=== PATIENT | female | born 1940 | race Caucasian/White ===

== ENCOUNTER → 2017-05-13 | Outpatient (CLI) | payer OTHER ==
[~2017-05-13] MED LIST: ATV5 PO; CLC100 PO; MAGN400T6 PO; PRN10125 PO; SYN50 PO
[2017-05-13 12:01] LABS: BASO % 0.6 %; BASO ABS # 0.03 K/uL (0-0.2); COMPLETE YES; EOS % 4.9 %; HEMATOCRIT 41.3 % (37-47); LYMPH % 38.9 %; LYMPH ABS # 1.97 K/uL (1.2-3.4); MEAN CELL VOLUME 90.2 fL (80-100); MEAN CORPUSCULAR HEMOGLOBIN 29.3 pg (25-34); MEAN CORPUSCULAR HGB CONC 32.4 g/dl (32-36); MEAN PLATELET VOLUME 11.9 fL (7.4-10.4); MONO % 7.7 %; NEUT % 47.9 %; PLATELET COUNT 194 K/uL (130-400); RED BLOOD COUNT 4.58 M/uL (4.2-5.4); WHITE BLOOD COUNT 5.06 K/uL (4.8-10.8)
[2017-05-13 12:27] LABS: ESTIMATED AVERAGE GLUCOSE 111 mg/dl; HA1C FLAG Normal (Normal)
[2017-05-13 12:39] LABS: ALT/SGPT 23 U/L (12-78); AST/SGOT 16 U/L (15-37); BLOOD UREA NITROGEN 21 mg/dl (7-18); BUN/CREATININE RATIO 23.7 (10-20); CALCIUM 9.2 mg/dl (8.5-10.1); CARBON DIOXIDE 31 mmol/L (21-32); CHLORIDE 107 mmol/L (98-107); CHOLESTEROL 225 mg/dl (0-200); CREATININE 0.87 mg/dl (0.60-1.20); GLUCOSE 87 mg/dl (70-99); POTASSIUM 4.1 mmol/L (3.5-5.1); SODIUM 144 mmol/L (136-145)
[2017-05-13 12:50] LABS: ALB/GLOB RATIO 1.1 (0.9-2); ALKALINE PHOSPHATASE 44 U/L (45-117); CHOLESTEROL/HDL RATIO 2.8; HDL CHOLESTEROL 81 mg/dl; LDL CHOLESTEROL CALCULATED 127 mg/dl; TRIGLYCERIDES 83 mg/dl (0-150); VERY LOW DENSITY LIPOPROT CALC 17 mg/dl
--- NOTE | 2017-05-20 10:44 | CODING QUERY MEDICAL NECESSITY ---
CQSUPPORTING DIAGNOSIS NEEDED A supporting diagnosis is required for the test/procedure performed on this patient in order for us to be reimbursed by the patient's insurance. Please provide a supporting diagnosis for the following test/procedure listed below next to the test name along with your signature. *If there is no additional diagnosis for this patient that would support the following test/procedure please document that below next to the test/procedure. Test(s)/Procedure(s) that require a supporting diagnosis: DOS 05/13/17 M GLYCATED HEMOGLOBIN TEST BLOOD COUNT TEST THYROID TEST Provider Signature: Date: Thank you Lara Naranjo Health Information Management Once completed, please kindly fax back to [phone] For questions please call [phone]
== END | disposition home or self-care (01) ==
LOC: C.LABPBG 08:08
PROVIDERS: ATTEND Internal Medicine
DX: M81.0 Age-related osteoporosis without current pathological fracture (principal); R73.9 Hyperglycemia, unspecified; I10 Essential (primary) hypertension; E07.9 Disorder of thyroid, unspecified

== ENCOUNTER → 2017-06-09 | Outpatient (CLI) | payer OTHER ==
--- NOTE | 2017-06-09 15:19 | MAMMOGRAPHY REPORT ---
BILATERAL DIGITAL SCREENING MAMMOGRAM WITH CAD: 06/09/2017 TECHNIQUE: Current study was also evaluated with a Computer Aided Detection (CAD) system. Bilateral CC and MLO views were obtained. COMPARISON: Comparison is made to exams dated: 04/30/2016 mammogram, 04/04/2015 mammogram, 02/14/2014 ma mmogram, 02/06/2013 mammogram, 12/02/2011 mammogram, and 12/01/2010 mammogram - [facility] er. BREAST COMPOSITION: There are scattered areas of fibroglandular density in both breasts. FINDINGS: No suspicious masses, calcifications, or areas of architectural distortion are noted in ei ther breast. There has been no significant interval change compared to prior exams. Scattered bilater al benign-appearing calcifications are not significantly changed. IMPRESSION: ACR BI-RADS CATEGORY 2: BENIGN There is no mammographic evidence of malignancy. A 1 year screening mammogram is recommended. The pa tient will receive written notification of the results. Approximately 10% of breast cancers are not detected with mammography. A negative mammographic report should not delay biopsy if a clinically suggestive mass is present. Catarina Bhatia M.D. /:06/09/2017 11:48:36 Horseshoer: Florecita COLUNGA(Jacob)(Dipti), [facility] letter sent: Normal 1/2 BI-RADS Code: ACR BI-RADS Category 2: Benign
== END | disposition home or self-care (01) ==
LOC: C.MAMM 11:21
PROVIDERS: ATTEND Internal Medicine
DX: Z12.31 Encounter for screening mammogram for malignant neoplasm of breast (principal)

== ENCOUNTER → 2018-06-13 | Outpatient (CLI) | payer OTHER ==
--- NOTE | 2018-06-14 06:59 | MAMMOGRAPHY REPORT ---
BILATERAL DIGITAL SCREENING MAMMOGRAM TOMOSYNTHESIS WITH CAD: 06/13/2018 CLINICAL HISTORY: Routine screening. TECHNIQUE: The study was acquired using full field digital technology and interpreted from soft copy. Breast tomosynthesis in addition to standard 2D mammography was performed. Current study was also ev aluated with a Computer Aided Detection (CAD) system. COMPARISON: Comparison is made to exams dated: 06/09/2017 mammogram, 04/30/2016 mammogram, 04/04/2015 ma mmogram, 02/14/2014 mammogram, 02/06/2013 mammogram, and 12/02/2011 mammogram - [facility]. BREAST COMPOSITION: There are scattered areas of fibroglandular density in both breasts. FINDINGS: The glandular pattern is similar to prior mammograms. There are mild vascular calcificatio ns in the breasts. A few benign-appearing round calcifications in the right breast. No suspicious ma ss, architectural distortion or cluster of microcalcifications is seen. IMPRESSION: ACR BI-RADS CATEGORY 1: NEGATIVE There is no mammographic evidence of malignancy. A 1 year screening mammogram is recommended.( [id number]) The patient will receive written notification of the results. Some breast cancers are not detected with mammography. A negative mammographic report should not shavon y biopsy if a clinically suggestive mass is present. Sugar Kuhn M.D. ay/:06/13/2018 17:07:56 Compliance Officer: RT Katlyn(Jacob)(Dipti), [facility] letter sent: Normal 1/2 BI-RADS Code: ACR BI-RADS Category 1: Negative
== END | disposition home or self-care (01) ==
LOC: C.MAMM 09:57
PROVIDERS: ATTEND Internal Medicine
DX: Z12.31 Encounter for screening mammogram for malignant neoplasm of breast (principal)

== ENCOUNTER 2021-05-21 08:18 | Observation (INO) ==
--- NOTE | 2021-05-21 08:41 | Emergency Department Note ---
Impression & Plan Facial infection, Facial swelling, Pain, dental ED Provider Note NAME: JOANN Carrera NEARHOOD AGE: 80 SEX: F : 1940 ARRIVES VIA: Walk-In INFORMANT: Patient ED PROVIDER(S): Uziel Washington DO CHIEF COMPLAINT: Left-sided facial swelling HPI: Patient is an 80-year-old female who presents to the ER for left-sided facial swelling. This started over the weekend on Wednesday or Wednesday when she noticed a little bit of pain. The swelling started to significantly increase on Wednesday. She saw her dentist who placed her on amoxicillin after obtaining x- rays. She notes she is having trouble opening her mouth now. She has swelling and redness underneath her jaw. She admits to pain which gets to a 10 out of 10. She took some Motrin now the pain has resolved. Denies any headache or change in vision. No fevers that she remembers. No chest pain shortness of migel ath nausea vomiting or diarrhea. She still is able to swallow. ROS: See above HPI for pertinent positives & negatives. A total of 10 systems reviewed and were otherwise negative. PAST MEDICAL HISTORY:See Below PAST SURGICAL HISTORY:See Below FAMILY HISTORY:See Below SOCIAL HISTORY:See Below HOME MEDICATIONS:See Below ALLERGIES:See Below VITALS:See Below PHYSICAL EXAMINATION: GENERAL: Sitting up in bed, alert, well appearing, well nourished, no distress, non-toxic EYE EXAM: normal conjunctiva. FACE: Swelling over the left mid lower mandible tracking under the mandible. Erythema over the left lateral mandible and inferiorly under the mandible with fullness. OROPHARYNX: Limited opening of the mouth. Poor dentition. Tenderness over the left mid lower mandible. NECK: supple, no nuchal rigidity, no adenopathy, non-tender LUNGS: Clear to auscultation. Normal chest wall mechanics HEART: no murmurs, S1 normal and S2 normal ABDOMEN: abdomen soft, non-tender, normo-active bowel sounds, no masses, no rebound or guarding. BACK: Back is symmetrical on inspection and there is no deformity, no midline tenderness, no CVA tenderness. SKIN: no rashes and no bruising UPPER EXTREMITIES: upper extremities are grossly normal. LOWER EXTREMITIES: No pitting edema. NEURO EXAM: Normal sensorium, cranial nerves II-XII grossly intact, normal speech, no gross weakness of arms, no gross weakness of legs. MEDICAL DECISION MAKING: Patient is an 80-year-old female who presents the ER for facial swelling. IV was established blood work obtained. Labs show no significant leukocytosis or anemia. BMP with a slightly elevated BUN. LFTs bilirubin was unremarkable. Covid was negative. CT of the face shows significant amount of swelling. Patient was given IV fluids Zofran and Decadron. Discussed with Dr. Parag Hogue and he agreed with admission and will evaluate the patient. Discussed with the hospitalist for further work-up. Triage Nursing notes reviewed. Limited review of prior medical records performed Vital Signs: reviewed and remarkable for HTN Differential diagnosis: Dental caries, dental abscess, Ludwigs angina, Vincent angina, dental fracture, facial cellulitis, parotitis, osteomyelitis, sinus infection, peritonsillar abscess. ER treatment provided: See below Diagnostics interpreted by me: ECG: none Cardiac Monitoring: An order was placed for continuous cardiac monitoring. The monitor shows a rate of 82 with sinus rhythm. Laboratory studies: As stated above and show below. Imaging studies: CT of the face as discussed above Consultation(s): Discussed with the hospitalist for further evaluation as well as Dr. Parag Hogue Procedures: none Critical Care: None Past Med/Surg History Medical History History of cystocele History of kidney stones HTN (hypertension) Hyperlipidemia PT NOT SURE Hypothyroid Osteoporosis PSVT (paroxysmal supraventricular tachycardia) "OFF BEAT" Thyroid disorder Surgical History History of cataract surgery right cataract History of colonoscopy History of tubal ligation History of vaginal hysterectomy Family History Brother Myocardial infarction Sister Ovarian cancer Other Family history of diabetes mellitus Hypertension Kidney disease Denies family history of Prostate cancer Breast cancer Colorectal cancer Social History Smoking Status: Never smoker Second Hand Exposure: No; Hx Alcohol Use: No Hx Substance Use: No Preferred Language: Montenegrin Communication Ability: Effective Visual Impairment: Partially Limited Hearing Ability: Normal Waiter/Waitress Dining Car Required: No Beliefs That Will Affect Care: None marital status: Current Living Situation: Spouse current occupational status: retired How many Children do You have: 4 Feels Safe at Home: Yes Childhood Exposure to Second-Hand Smoke: No caffeine: No during the past year weight has: increased > 10 lbs Dental Care, Regularly: Yes Physical Activity Frequency: 3-4 Times per Week Seatbelt Use: always Sunscreen Use: Yes Assistive Devices: Glasses Allergies Allergies Allergy/AdvReac Type Severity Reaction Status Date / Time No Known Drug Allergies Allergy Verified 04/03/21 09:16 Home Meds Home Medications Medication Instructions Recorded Confirmed Lactobacillus acidophilus 100 mg PO DAILY 07/12/19 05/21/21 (Acidophilus) ascorbic acid (vitamin C) 1,000 mg 1 gm PO DAILY tab 07/12/19 05/21/21 tablet calcium carbonate 600 mg calcium 600 mg PO DAILY tab 07/12/19 05/21/21 (1,500 mg) tablet cholecalciferol (vitamin D3) 25 2,000 units PO DAILY cap 07/12/19 05/21/21 mcg (1,000 unit) capsule flaxseed oil 1,000 mg capsule 1,000 mg PO DAILY 07/12/19 05/21/21 multivitamin 1 tab PO DAILY 07/12/19 05/21/21 vitamin E (dl, acetate) 400 unit 400 units PO DAILY 07/12/19 05/21/21 capsule oregano oil 510 mg PO DAILY 07/17/19 05/21/21 magnesium oxide 500 mg capsule 500 mg PO DAILY 11/18/20 05/21/21 levothyroxine 50 mcg tablet 50 mcg PO QAM 03/04/21 05/21/21 lisinopril 10 1 tab PO QAM 03/04/21 05/21/21 mg-hydrochlorothiazide 12.5 mg tablet Previous Rx's Medication Instructions Recorded lorazepam 0.5 mg tablet 0.5 mg PO DAILY PRN #30 tab 09/09/20 Results & Data (ED) Vital Signs Vital Signs - 24 hr 05/21/21 08:20 05/21/21 08:37 05/21/21 10:57 Temperature 36.9 C Temperature Source Temporal Artery Scan Pulse Rate 82 Pulse Rate [Finger] 95 H Respiratory Rate 18 18 Respiratory Effort / Characteristics Non-Labored Respiratory Depth Normal Respiratory Pattern Regular Blood Pressure 161/91 H Blood Pressure [Right Arm] 208/82 H Blood Pressure Mean 114 Blood Pressure Mean [Right Arm] 124 Pulse Oximetry 100 97 97 Oxygen Delivery Method Room Air Room Air Room Air Sepsis Recent Fever Within 48 Hours No Sepsis New/Unexplained Change in Mental Status No Sepsis Action Taken by Nursing No Action Required 05/21/21 12:00 Temperature Temperature Source Pulse Rate Pulse Rate [Finger] 86 Respiratory Rate 16 Respiratory Effort / Characteristics Non-Labored Spontaneous Respiratory Depth Normal Respiratory Pattern Regular Blood Pressure Blood Pressure [Right Arm] 170/86 H Blood Pressure Mean Blood Pressure Mean [Right Arm] 114 Pulse Oximetry 98 Oxygen Delivery Method Room Air Sepsis Recent Fever Within 48 Hours Sepsis New/Unexplained Change in Mental Status Sepsis Action Taken by Nursing Laboratory Data Result diagrams: 05/21/21 08:45 05/21/21 08:45 Lab Results 05/21/21 05/21/21 05/21/21 Range/Units 08:45 08:45 08:48 WBC 6.66 (4.8-10.8) K/uL RBC 4.41 (4.2-5.4) M/uL Hgb 13.1 (12.0-16.0) g/dL POC Hgb 13.6 (12.0-16.0) g/dl Hct 40.2 (37-47) % POC Hct 40 (37-47) % MCV 91.2 (80-100) fL MCH 29.7 (25-34) pg MCHC 32.6 (32-36) g/dL RDW Std Deviation 46.0 (36.4-46.3) fL RDW Coeff of Jaye 13.7 (11.5-14.5) % Plt Count 197 (130-400) K/uL MPV 11.7 H (7.4-10.4) fL Immature Gran % (Auto) 0.2 % Neut % (Auto) 68.2 % Lymph % (Auto) 18.5 % [place] % (Auto) 9.3 % Eos % (Auto) 3.3 % Baso % (Auto) 0.5 % Neut # (Auto) 4.55 (1.4-6.5) K/uL Lymph # (Auto) 1.23 (1.2-3.4) K/uL [place] # (Auto) 0.62 H (0.11-0.59) K/uL Eos # (Auto) 0.22 (0-0.5) K/uL Baso # (Auto) 0.03 (0-0.2) K/uL Immature Gran # (Auto) 0.01 (0.00-0.02) K/uL POC Sodium 142 (135-144) mmol/L Sodium 139 (136-145) mmol/L POC Potassium 4.4 (3.3-5.0) mmol/L Potassium 4.3 (3.5-5.1) mmol/L POC Chloride 102 (101-112) mmol/L Chloride 106 (98-107) mmol/L Carbon Dioxide 32 (21-32) mmol/L POC Total CO2 28 (24-31) mmol/L Anion Gap 1.0 L (3-11) POC Anion Gap 17.0 (16-25) mmol/L POC BUN 28 H (7-18) mg/dl BUN 28 H (7-18) mg/dl Creatinine 1.02 (0.6-1.2) mg/dl POC Creatinine 1.1 (0.6-1.3) mg/dl Est Cr Clr Drug Dosing 39.0 ml/min Est GFR ( Amer) 59.3 ml/min Est GFR (Non-Af Amer) 51.2 ml/min BUN/Creatinine Ratio 27.7 H (10-20) Glucose 116 H (70-99) mg/dl POC Glucose (other) 118 H (70-99) mg/dl Calcium 9.8 (8.5-10.1) mg/dl POC Ioniz Calcium Jennifer 1.30 (1.12-1.32) mmol/l Total Bilirubin 0.4 (0.2-1) mg/dl AST 17 (15-37) U/L ALT 24 (12-78) U/L Alkaline Phosphatase 55 (45-117) U/L Total Protein 7.9 (6.4-8.2) gm/dl Albumin 3.7 (3.4-5.0) gm/dl Globulin 4.2 H (2.5-4.0) gm/dl Albumin/Globulin Ratio 0.9 (0.9-2) COVID-19 Eval Order SARS-CoV-2 (PCR) (Negative) 05/21/21 05/21/21 Range/Units 10:44 10:44 WBC (4.8-10.8) K/uL RBC (4.2-5.4) M/uL Hgb (12.0-16.0) g/dL POC Hgb (12.0-16.0) g/dl Hct (37-47) % POC Hct (37-47) % MCV (80-100) fL MCH (25-34) pg MCHC (32-36) g/dL RDW Std Deviation (36.4-46.3) fL RDW Coeff of Jaye (11.5-14.5) % Plt Count (130-400) K/uL MPV (7.4-10.4) fL Immature Gran % (Auto) % Neut % (Auto) % Lymph % (Auto) % [place] % (Auto) % Eos % (Auto) % Baso % (Auto) % Neut # (Auto) (1.4-6.5) K/uL Lymph # (Auto) (1.2-3.4) K/uL [place] # (Auto) (0.11-0.59) K/uL Eos # (Auto) (0-0.5) K/uL Baso # (Auto) (0-0.2) K/uL Immature Gran # (Auto) (0.00-0.02) K/uL POC Sodium (135-144) mmol/L Sodium (136-145) mmol/L POC Potassium (3.3-5.0) mmol/L Potassium (3.5-5.1) mmol/L POC Chloride (101-112) mmol/L Chloride (98-107) mmol/L Carbon Dioxide (21-32) mmol/L POC Total CO2 (24-31) mmol/L Anion Gap (3-11) POC Anion Gap (16-25) mmol/L POC BUN (7-18) mg/dl BUN (7-18) mg/dl Creatinine (0.6-1.2) mg/dl POC Creatinine (0.6-1.3) mg/dl Est Cr Clr Drug Dosing ml/min Est GFR ( Amer) ml/min Est GFR (Non-Af Amer) ml/min BUN/Creatinine Ratio (10-20) Glucose (70-99) mg/dl POC Glucose (other) (70-99) mg/dl Calcium (8.5-10.1) mg/dl POC Ioniz Calcium Jennifer (1.12-1.32) mmol/l Total Bilirubin (0.2-1) mg/dl AST (15-37) U/L ALT (12-78) U/L Alkaline Phosphatase (45-117) U/L Total Protein (6.4-8.2) gm/dl Albumin (3.4-5.0) gm/dl Globulin (2.5-4.0) gm/dl Albumin/Globulin Ratio (0.9-2) COVID-19 Eval Order Covid19 at [facility] SARS-CoV-2 (PCR) NEGATIVE (Negative) Administered Medications Discontinued Medications Dexamethasone Sodium Phosphate (DexamethasonePf 10 Mg/Ml Vial) 10 mg IV NOW ONE Stop: 05/21/21 09:45 Last Admin: 05/21/21 10:03 Dose: 10 mg Documented by: [id number] Piperacillin Sod/Tazobactam Sod (Zosyn) 4.5 gm in 120 mls @ 240 mls/hr IV NOW ONE Stop: 05/21/21 10:14 Last Infusion: 05/21/21 10:41 Dose: 0 mls/hr Documented by: [id number] Admin: 05/21/21 10:03 Dose: 240 mls/hr Documented by: [id number] Sodium Chloride (Nss 1000ml) 1,000 mls @ 999 mls/hr IV .Q1H1M ONE Stop: 05/21/21 10:45 Last Infusion: 05/21/21 11:01 Dose: 0 mls/hr Documented by: [id number] Admin: 05/21/21 10:03 Dose: 999 mls/hr Documented by: [id number] Ioversol (Optiray 320 100ml) 95 ml IV ONCE ONE Stop: 05/21/21 09:27 Last Admin: 05/21/21 09:26 Dose: 95 ml Documented by: [id number] Imaging Data Radiologist's Impression: Soft Tissue Neck CT 05/21/21 08:36 CT soft tissue neck w con HISTORY: swelling left lower jaw under mandible TECHNIQUE: Multiaxial CT images of the neck were performed following the intravenous administration of 95 cc of Optiray 320. Sagittal and coronal reformations were performed at the workstation by the radiologist. COMPARISON STUDY: None. FINDINGS: There is skin thickening and subcutaneous fat stranding/edema surrou nding the body of the left hemimandible. There are mildly enlarged left submandibular lymph nodes. There is mild thickening of the platysma and soft tissue edema along the left anterior neck likely representing extension of the inflammatory change from the left submandibular location. No loculated fluid collections to suggest an abscess. A few punctate foci of gas adjacent to the left hemimandible on images 164 and 166 may be located within the oral cavity rather than a soft tissue gas. Dental artifact partially obscures the oral cavity. Mild asymmetric enhancement within the left submandibular gland in comparison to the right which is also slightly edematous. This could be reactive to the adjacent inflammatory change or represent an additional sialoadenitis. The parotid glands are symmetric. The visualized brain parenchyma and orbits are unremarkable. The pterygopalatine fossa and paratracheal fat spaces are well- maintained. There are few punctate calcifications within the palatine tonsils. Otherwise, the mucosal airways services appear intact. The thyroid gland enhances normally. Prevertebral soft tissues and the epiglottis are normal in thickness. No periapical lucencies identified within the teeth. The paranasal sinuses and mastoid air cells are clear. No suspicious lytic or blastic osseous lesions. A few punctate calcified granulomas seen within the lung apices. The major cervical vessels appear patent. A few asymmetrically enlarged left cervical lymph nodes in comparison to the right. The dominant lymph node on image 206 measures 9 mm. These are likely reactive to the left submandibular inflammatory process. IMPRESSION: 1. A left submandibular inflammatory process as described above with soft tissue edema extending into the left anterior neck. There is associated left submandibular lymphadenopathy with a few borderline-enlarged left cervical lymph nodes. No definite abscess identified. 2. There is also mild asymmetric enhancement within the left submandibular gland which is slightly edematous. This could be reactive to the submandibular inflammatory change or represent an additional sialoadenitis. 3. No periapical lucencies identified within the teeth. ACT 112: Negative or not required by law. Electronically signed by: Marcos Vo M.D. 05/21/2021 9:43 AM Discharge Plan Visit Data Chief Complaint: Allergic Reaction Stated Complaint: SWOLLEN FACE/RASH POSSIBLE FROM AMOXICILLAN ED Provider: Uziel Washington Discharge Problem: Facial infection, Facial swelling, Pain, dental Forms Stand Alone Forms: [facility] [employer] Prescriptions Prescriptions: No Action lorazepam 0.5 mg tablet 0.5 mg PO DAILY PRN (Reason: anxiety) Qty: 30 RF: 0 Lactobacillus acidophilus [Acidophilus] capsule 100 mg PO DAILY RF: 0 calcium carbonate 600 mg calcium (1,500 mg) tablet 600 mg PO DAILY RF: 0 flaxseed oil 1,000 mg capsule 1,000 mg PO DAILY RF: 0 multivitamin tablet 1 tab PO DAILY RF: 0 ascorbic acid (vitamin C) 1,000 mg tablet 1 gm PO DAILY RF: 0 vitamin E (dl, acetate) 400 unit capsule 400 units PO DAILY RF: 0 cholecalciferol (vitamin D3) 1,000 unit capsule 2,000 units PO DAILY RF: 0 oregano oil 510 mg PO DAILY RF: 0 magnesium oxide 500 mg capsule 500 mg PO DAILY RF: 0 levothyroxine 50 mcg tablet 50 mcg PO QAM RF: 0 lisinopril-hydrochlorothiazide 10-12.5 mg tablet 1 tab PO QAM RF: 0 Referrals Referrals: Oswaldo Starks MD [Primary Care Provider] -
[2021-05-21 09:00] LABS: iSTAT Creatinine 1.1 mg/dl (0.6-1.3); iSTAT Hemoglobin 13.6 g/dl (12.0-16.0); iSTAT Ionized Calcium 1.3 mmol/l (1.12-1.32); iSTAT Potassium 4.4 mmol/L (3.3-5.0)
[2021-05-21 09:22] LABS: Basophils # (auto) 0.03 K/uL (0-0.2); Basophils % (auto) 0.5 %; Eosinophils # (auto) 0.22 K/uL (0-0.5); Eosinophils % (auto) 3.3 %; Hematocrit (blood only) 40.2 % (37-47); Hemoglobin 13.1 g/dL (12.0-16.0); Immature Granulocytes # (auto) 0.01 K/uL (0.00-0.02); Immature Granulocytes % (auto) 0.2 %; Lymphocytes # (auto) 1.23 K/uL (1.2-3.4); Lymphocytes % (auto) 18.5 %; Mean Corpuscular Hemoglobin 29.7 pg (25-34); Mean Corpuscular Hgb Conc 32.6 g/dL (32-36); Mean Corpuscular Volume 91.2 fL (80-100); Mean Platelet Volume 11.7 fL (7.4-10.4); Monocytes # (auto) 0.62 K/uL (0.11-0.59); Monocytes % (auto) 9.3 %; Neutrophils # (auto) 4.55 K/uL (1.4-6.5); Neutrophils % (auto) 68.2 %; Platelet Count 197 K/uL (130-400); RDW Coefficient of Variation 13.7 % (11.5-14.5); Red Blood Count 4.41 M/uL (4.2-5.4); White Blood Count 6.66 K/uL (4.8-10.8)
[2021-05-21] MEDS ORDERED: OPTIRAY 320 100ml IV ONE (09:26)
[2021-05-21 09:40] LABS: Albumin Level 3.7 gm/dl (3.4-5.0); BUN Creatinine Ratio 27.7 (10-20); Calcium 9.8 mg/dl (8.5-10.1); Est GFR (African American) 59.3 ml/min; Est GFR (Non-African American) 51.2 ml/min; Potassium 4.3 mmol/L (3.5-5.1)
[2021-05-21 09:43] LABS: Albumin Globulin Ratio 0.9 (0.9-2); Bilirubin,Total 0.4 mg/dl (0.2-1); Globulin 4.2 gm/dl (2.5-4.0); Total Protein 7.9 gm/dl (6.4-8.2)
[2021-05-21] MEDS ORDERED: dexAMETHasone**PF** 10 MG/ML VIAL IV ONE (09:44)
[2021-05-21] MEDS ORDERED: PIPERACILL/TAZOBAC CONSULT ACTIVE PRN ×2 (09:45→16:33)
[2021-05-21] MEDS ORDERED: PIPERACILLIN/TAZOBACTAM 4.5 GM/120 ML BAG IV ONE (09:45)
[2021-05-21] MEDS ORDERED: SODIUM CHLORIDE 0.9% 1000ML 1,000 ML IV ONE (09:45)
--- NOTE | 2021-05-21 09:45 | CT Scan Report ---
CT soft tissue neck w con HISTORY: swelling left lower jaw under mandible TECHNIQUE: Multiaxial CT images of the neck were performed following the intravenous administration o f 95 cc of Optiray 320. Sagittal and coronal reformations were performed at the workstation by the ra diologist. COMPARISON STUDY: None. FINDINGS: There is skin thickening and subcutaneous fat stranding/edema surrounding the body of the l eft hemimandible. There are mildly enlarged left submandibular lymph nodes. There is mild thickening of the platysma and soft tissue edema along the left anterior neck likely representing extension of t he inflammatory change from the left submandibular location. No loculated fluid collections to sugges t an abscess. A few punctate foci of gas adjacent to the left hemimandible on images 164 and 166 may be located within the oral cavity rather than a soft tissue gas. Dental artifact partially obscures t he oral cavity. Mild asymmetric enhancement within the left submandibular gland in comparison to the right which is also slightly edematous. This could be reactive to the adjacent inflammatory change or represent an additional sialoadenitis. The parotid glands are symmetric. The visualized brain parenc hyma and orbits are unremarkable. The pterygopalatine fossa and paratracheal fat spaces are well-main tained. There are few punctate calcifications within the palatine tonsils. Otherwise, the mucosal air ways services appear intact. The thyroid gland enhances normally. Prevertebral soft tissues and the e piglottis are normal in thickness. No periapical lucencies identified within the teeth. The paranasal sinuses and mastoid air cells are clear. No suspicious lytic or blastic osseous lesions. A few punct ate calcified granulomas seen within the lung apices. The major cervical vessels appear patent. A few asymmetrically enlarged left cervical lymph nodes in comparison to the right. The dominant lymph nod e on image 206 measures 9 mm. These are likely reactive to the left submandibular inflammatory proces s. IMPRESSION: 1. A left submandibular inflammatory process as described above with soft tissue edema extending into the left anterior neck. There is associated left submandibular lymphadenopathy with a few borderline -enlarged left cervical lymph nodes. No definite abscess identified. 2. There is also mild asymmetric enhancement within the left submandibular gland which is slightly ed ematous. This could be reactive to the submandibular inflammatory change or represent an additional s ialoadenitis. 3. No periapical lucencies identified within the teeth. ACT 112: Negative or not required by law. Electronically signed by: Marcos Vo M.D. 05/21/2021 9:43 AM
--- NOTE | 2021-05-21 11:35 | Oral/Maxillofacial Consult ---
Date of Consultation May 21, 2021 History of Present Illness Reason for Consultation: left submandibular and floor of mouth swelling Oral Maxillofacial Surgery Exam in Emergency department at the request of Dr Washington Present Complaint: I have swelling left jaw x 2 days, some pain lower left molar, pain on pressure. Symptoms have been ongoing for since Sat. Her dentist placed her on antibiotics but oral antibiotics has not resolved the swelling. Oral Exam: Findings: tender gingival tissue with deep pocket formation and severe recession on the lingual of # 19. There is floor of the mouth swelling in this area. This looks to be a periodontal infection with spread to floor of mouth and submandibular area. The soft gingival tissue is red/swollen and extremely recessed--with exposure of 80% of the distal root. This is the etiology of the present infection. This is a soft tissue periodontal infection. CT scan impression: 1. A left submandibular inflammatory process as described above with soft tissue edema extending into the left anterior neck. There is associated left submandibular lymphadenopathy with a few borderline-enlarged left cervical lymph nodes. No definite abscess identified. 2. There is also mild asymmetric enhancement within the left submandibular gland which is slightly edematous. This could be reactive to the submandibular inflam matory change or represent an additional sialoadenitis. 3. No periapical lucencies identified within the teeth. Soft tissue: floor of the mouth left side swollen, submandibular and submental swelling tongue, hard/soft palate, posterior pharyngeal area all with in normal limits, no pathology or abnormal findings noted. No lesions noted that require follow up or Bx. Oral Care: Overall oral care is good Occlusion: Class I missing many teeth TMJ exam: No pop, clicking, pain, good ROM, No history of TMJ injury or dysfunction Periodontal exam: There is evidence of periodontal pathology in the form of recession especially lingual # 19 Head/Neck exam: FROM, Able to extend and flex neck w/o difficulty, Soft swelling submandibular area and mental area extending from the left floor of the mouth. Treatment Plan: Need medical clearance To OR or extraction of # 19 and possible I&D eft Floor of the mouth. Admit on medical service for IV antibiotics. I reviewed the treatment plan and consent with the patient and daughter Understanding was expressed. Time was given for questions regarding the surgery, risks and post op care. Discussed alternative to treatment--procedure as planned, Do not do surgery Risks discussed: Pain,swelling,infection, dry socket, delayed healing, nerve injury to face,lips,tongue,chin area which could be permanent (rare). TMJ, jaw stiffness, change in bite (rare), ear pain (referred). Sinus problems like fistula or infection. Need to leave a small root fragment in place to avoid injury to nerve or sinus. Relationship of teeth to nerve and risk of jaw fracture. Home care reviewed: tooth brushing, rinsing, follow up care with Dr Hogue. diet=[id number] dental. Discussed activity level, driving/work while on Rx pain Meds. Surgery to be set up today or tomorrow once cleared by medicine then admit to floor for IV antibiotics until improvement noted so we can transfer back to oral Meds Allergies Allergy/AdvReac Type Severity Reaction Status Date / Time No Known Drug Allergies Allergy Verified 04/03/21 09:16 Home Medications Medication Instructions Recorded Confirmed Type Lactobacillus acidophilus 100 mg PO DAILY 07/12/19 05/21/21 History (Acidophilus) ascorbic acid (vitamin C) 1,000 mg 1 gm PO DAILY tab 07/12/19 05/21/21 History tablet calcium carbonate 600 mg calcium 600 mg PO DAILY tab 07/12/19 05/21/21 History (1,500 mg) tablet cholecalciferol (vitamin D3) 25 2,000 units PO DAILY cap 07/12/19 05/21/21 History mcg (1,000 unit) capsule flaxseed oil 1,000 mg capsule 1,000 mg PO DAILY 07/12/19 05/21/21 History multivitamin 1 tab PO DAILY 07/12/19 05/21/21 History vitamin E (dl, acetate) 400 unit 400 units PO DAILY 07/12/19 05/21/21 History capsule oregano oil 510 mg PO DAILY 07/17/19 05/21/21 History lorazepam 0.5 mg tablet 0.5 mg PO DAILY PRN #30 tab 09/09/20 05/21/21 Rx magnesium oxide 500 mg capsule 500 mg PO DAILY 11/18/20 05/21/21 History levothyroxine 50 mcg tablet 50 mcg PO QAM 03/04/21 05/21/21 History lisinopril 10 1 tab PO QAM 03/04/21 05/21/21 History mg-hydrochlorothiazide 12.5 mg tablet Patient History Medical History History of cystocele History of kidney stones HTN (hypertension) Hyperlipidemia PT NOT SURE Hypothyroid Osteoporosis PSVT (paroxysmal supraventricular tachycardia) "OFF BEAT" Thyroid disorder Surgical History History of cataract surgery right cataract History of colonoscopy History of tubal ligation History of vaginal hysterectomy Family History Brother Myocardial infarction Sister Ovarian cancer Other Family history of diabetes mellitus Hypertension Kidney disease Denies family history of Prostate cancer Breast cancer Colorectal cancer Social History Smoking Status: Never smoker Second Hand Exposure: No; Hx Alcohol Use: No Hx Substance Use: No Preferred Language: Colombian Communication Ability: Effective Visual Impairment: Partially Limited Hearing Ability: Normal 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 Beliefs That Will Affect Care: None marital status: Current Living Situation: Spouse current occupational status: retired How many Children do You have: 4 Feels Safe at Home: Yes Childhood Exposure to Second-Hand Smoke: No caffeine: No during the past year weight has: increased > 10 lbs Dental Care, Regularly: Yes Physical Activity Frequency: 3-4 Times per Week Seatbelt Use: always Sunscreen Use: Yes Assistive Devices: Glasses Results & Data ([facility]) Vital Signs (Past 12 Hours) Vital Signs Temp Pulse Pulse Resp BP BP Pulse Ox 05/21/21 10:57 95 H 18 208/82 H 97 05/21/21 08:37 97 05/21/21 08:20 36.9 C 82 18 161/91 H 100 PG Care Time/CCT Total # of Minutes Spent Total Time Spent with Patient: Total time spent is greater than 50% in coordination of care (as documented) at patient's floor/unit and/or counseling patient: Coding Level of Care Code 52119 Office/Outpt Visit, New
--- NOTE | 2021-05-21 11:57 | Anesthesiology Consultation ---
Date of Service May 21, 2021 Assessment & Plan (1) Encounter for pre-operative examination: Chart Review Chart Review: Acceptable Risk for Surgery (covid test pending, need to assess NPO status) History Surgery Operation Date: 05/21/21 09:40 Proposed Procedures p Tooth Extraction 19 - Parag Hogue, DMD s with Drainage - Parag Hogue, DMD Height/Weight Height: 5 ft 3 in Weight: 66.6 kg Allergies Allergy/AdvReac Type Severity Reaction Status Date / Time No Known Drug Allergies Allergy Verified 04/03/21 09:16 Medications Home Medications Medication Instructions Recorded Confirmed Last Taken Lactobacillus acidophilus 100 mg PO DAILY 07/12/19 05/21/21 05/20/21 (Acidophilus) ascorbic acid (vitamin C) 1,000 mg 1 gm PO DAILY tab 07/12/19 05/21/21 05/20/21 tablet calcium carbonate 600 mg calcium 600 mg PO DAILY tab 07/12/19 05/21/21 05/20/21 (1,500 mg) tablet cholecalciferol (vitamin D3) 25 2,000 units PO DAILY cap 07/12/19 05/21/21 05/20/21 mcg (1,000 unit) capsule flaxseed oil 1,000 mg capsule 1,000 mg PO DAILY 07/12/19 05/21/21 05/20/21 multivitamin 1 tab PO DAILY 07/12/19 05/21/21 05/20/21 vitamin E (dl, acetate) 400 unit 400 units PO DAILY 07/12/19 05/21/21 05/20/21 capsule oregano oil 510 mg PO DAILY 07/17/19 05/21/21 05/20/21 lorazepam 0.5 mg tablet 0.5 mg PO DAILY PRN #30 tab 09/09/20 05/21/21 05/21/21 magnesium oxide 500 mg capsule 500 mg PO DAILY 11/18/20 05/21/21 05/20/21 levothyroxine 50 mcg tablet 50 mcg PO QAM 03/04/21 05/21/21 05/20/21 lisinopril 10 1 tab PO QAM 03/04/21 05/21/21 05/21/21 mg-hydrochlorothiazide 12.5 mg tablet Past Medical History Medical History History of cystocele History of kidney stones HTN (hypertension) Hyperlipidemia PT NOT SURE Hypothyroid Osteoporosis PSVT (paroxysmal supraventricular tachycardia) "OFF BEAT" Thyroid disorder Past Family History Family History Brother Myocardial infarction Sister Ovarian cancer Other Family history of diabetes mellitus Hypertension Kidney disease Denies family history of Prostate cancer Breast cancer Colorectal cancer Past Surgical History Surgical History History of cataract surgery right cataract History of colonoscopy History of tubal ligation History of vaginal hysterectomy Social History Smoking Status: Never smoker Hx Alcohol Use: No Hx Substance Use: No substance use type: does not use Physical Exam Vital Signs Last Vital Signs Temp 36.9 C 05/21/21 08:20 Pulse 95 H 05/21/21 10:57 Resp 18 05/21/21 10:57 BP 208/82 H 05/21/21 10:57 Pulse Ox 97 05/21/21 10:57 Testing Laboratory Results 05/21/21 08:45 05/21/21 08:45 05/21/21 08:48 POC Glucose (other) 118 H Electrocardiogram Date: 03/07/21 Findings: + NSR @ (65 PAC's)
--- NOTE | 2021-05-21 12:26 | History & Physical Report ---
Date of Service May 21, 2021 Assessment & Plan (1) Dental infection: Plan: 80yo female presenting with redness, swelling and pain in her left mandible. Has been out Amoxicilin outpatient x 2 days with no improvement. Afebrile, non- toxic in appearance. CT with left submandibular inflammatory process with soft tissue edema extending into the left anterior neck with LAD. No abscess. Patient seen by OMFS and found to have tender gingival tissue with deep pocket formation and severe recession on the lingual side of tooth #19. Plan for OR extraction with possible I&D later today. Medically, patient is hypertensive to 208/82 while in the ER. She has since t aken her PO medication as well as some Ativan and BP has improved to 170/86. She has no active cardiac disease. PACs present on EKG. Patient with longstanding history of "extra beat" stable and asymptomatic. She is able to complete 4 METS of activity without limitation. Per RSRI criteria patient is Class I risk for cardiac complication following surgery. She is medically optimized at this time and may proceed to the OR without additional testing or intervention. Will focus on blood pressure management and pain control in the post-operative setting. -Appreciate OMFS intervention. Patient to proceed to OR later today -Will place in observation to medical floor -Continue Zosyn 3.375gm IV q 8 -Tylenol PRN -Oxycodone PRN (2) Anxiety: Plan: Chronic -Continue Ativan PRN anxiety (3) HTN (hypertension): Plan: Elevated in ER possibly secondary to stress, pain, patient had not yet taken her medication -Continue Lisinopril/HCTZ -Continue to monitor (4) Hypothyroid: Plan: Chronic -Continue Synthroid Plan: F/E/N - Heplock. Electrolytes within normal limits. NPO for now. Will advance diet at recommendation of OMFS Ppx - SCDs Code - Full per discussion with patient Dispo - Observation to medical History of Present Illness Chief Complaint: left facial pain Primary Care Provider: Oswaldo Starks MD Nunu Shah is a pleasant 80yo female with history of HTN, Hypothyroidism presenting with left facial pain and swelling. She first developed swelling of the left mandibular jaw 3 days ago. Swelling and pain have been progressive. She was seen by the dentist 2 days ago and was prescribed Amoxicillin. She has been taking that medication as prescribed. Has had continued pain and swelling as well as redness of the jaw and neck which started last evening. No additional complaints. She denies fever/chills/CP/SOB/cough. No changes in voice. No throat swelling or tightness. She is unable to fully open her mouth. Blood pressure elevated in ER. She took her Lisinopril/HCTZ and Ativan while in the ER with improvement. ER Course: Dexamethasone 10mg IV, Zosyn 4.5gm, NSS Allergies Allergy/AdvReac Type Severity Reaction Status Date / Time No Known Drug Allergies Allergy Verified 04/03/21 09:16 Home Medications Medication Instructions Recorded Confirmed Type Lactobacillus acidophilus 100 mg PO DAILY 07/12/19 05/21/21 History (Acidophilus) ascorbic acid (vitamin C) 1,000 mg 1 gm PO DAILY tab 07/12/19 05/21/21 History tablet calcium carbonate 600 mg calcium 600 mg PO DAILY tab 07/12/19 05/21/21 History (1,500 mg) tablet cholecalciferol (vitamin D3) 25 2,000 units PO DAILY cap 07/12/19 05/21/21 History mcg (1,000 unit) capsule flaxseed oil 1,000 mg capsule 1,000 mg PO DAILY 07/12/19 05/21/21 History multivitamin 1 tab PO DAILY 07/12/19 05/21/21 History vitamin E (dl, acetate) 400 unit 400 units PO DAILY 07/12/19 05/21/21 History capsule oregano oil 510 mg PO DAILY 07/17/19 05/21/21 History lorazepam 0.5 mg tablet 0.5 mg PO DAILY PRN #30 tab 09/09/20 05/21/21 Rx magnesium oxide 500 mg capsule 500 mg PO DAILY 11/18/20 05/21/21 History levothyroxine 50 mcg tablet 50 mcg PO QAM 03/04/21 05/21/21 History lisinopril 10 1 tab PO QAM 03/04/21 05/21/21 History mg-hydrochlorothiazide 12.5 mg tablet Past Med/Surg History Medical History History of cystocele History of kidney stones HTN (hypertension) Hyperlipidemia PT NOT SURE Hypothyroid Osteoporosis PSVT (paroxysmal supraventricular tachycardia) "OFF BEAT" Thyroid disorder Surgical History History of cataract surgery right cataract History of colonoscopy History of tubal ligation History of vaginal hysterectomy Family History Brother Myocardial infarction Sister Ovarian cancer Other Family history of diabetes mellitus Hypertension Kidney disease Denies family history of Prostate cancer Breast cancer Colorectal cancer Social History Smoking Status: Never smoker Second Hand Exposure: No; Hx Alcohol Use: No Hx Substance Use: No Preferred Language: Kyrgyz Communication Ability: Effective Visual Impairment: Partially Limited Hearing Ability: Normal Monotype Keyboard Operator Required: No Beliefs That Will Affect Care: None marital status: Current Living Situation: Spouse current occupational status: retired How many Children do You have: 4 Feels Safe at Home: Yes Childhood Exposure to Second-Hand Smoke: No caffeine: No during the past year weight has: increased > 10 lbs Dental Care, Regularly: Yes Physical Activity Frequency: 3-4 Times per Week Seatbelt Use: always Sunscreen Use: Yes Assistive Devices: Glasses Review of Systems Review of Systems: All systems reviewed & are unremarkable except as noted in HPI & below Physical Exam Physical Exam: General: patient resting comfortably, NAD, non-toxic in appearance, AA&O x 4, anxious Skin: warm, dry, intact, slight redness to left mandibular jaw and anterior neck HEENT: NC/AT, PERRL, EOMI, anicteric sclera, conjunctiva without injection, external ear normal to inspection and nontender, nares patent, moist mucus membranes, +trismus, slight swelling of submandibular region, neck supple, trachea midline, no LAD, no thyromegaly, no JVD, swelling of left mandible, tender to palpation Heart: +S1/S2, regular with frequent ectopy, 2/6 IVONE at LSB, no rubs/gallops Lungs: equal air entry bilaterally, no rales/rhonchi/wheezes Abd: +BS, soft, NT/ND, no masses/organomegaly/ascites Ext: warm, 2+ pulses in UE/LE bilaterally, no clubbing/cyanosis or edema Neuro: nonfocal, patient AA&O x 4, speech intact, no facial droop, moving all extremities on command with equal strength 5/5 Results & Data Results & Data ([facility]) Vital Signs (Past 12 Hours) Vital Signs Temp Pulse Pulse Resp BP BP Pulse Ox 05/21/21 10:57 95 H 18 208/82 H 97 05/21/21 08:37 97 05/21/21 08:20 36.9 C 82 18 161/91 H 100 Laboratory Results Laboratory Results WBC 6.66 K/uL (4.8-10.8) 05/21/21 08:45 RBC 4.41 M/uL (4.2-5.4) 05/21/21 08:45 Hgb 13.1 g/dL (12.0-16.0) 05/21/21 08:45 POC Hgb 13.6 g/dl (12.0-16.0) 05/21/21 08:48 Hct 40.2 % (37-47) 05/21/21 08:45 POC Hct 40 % (37-47) 05/21/21 08:48 MCV 91.2 fL (80-100) 05/21/21 08:45 MCH 29.7 pg (25-34) 05/21/21 08:45 MCHC 32.6 g/dL (32-36) 05/21/21 08:45 RDW Std Deviation 46.0 fL (36.4-46.3) 05/21/21 08:45 RDW Coeff of Jaye 13.7 % (11.5-14.5) 05/21/21 08:45 Plt Count 197 K/uL (130-400) 05/21/21 08:45 MPV 11.7 fL (7.4-10.4) H 05/21/21 08:45 Immature Gran % (Auto) 0.2 % 05/21/21 08:45 Neut % (Auto) 68.2 % 05/21/21 08:45 Lymph % (Auto) 18.5 % 05/21/21 08:45 Cataño % (Auto) 9.3 % 05/21/21 08:45 Eos % (Auto) 3.3 % 05/21/21 08:45 Baso % (Auto) 0.5 % 05/21/21 08:45 Neut # (Auto) 4.55 K/uL (1.4-6.5) 05/21/21 08:45 Lymph # (Auto) 1.23 K/uL (1.2-3.4) 05/21/21 08:45 Cataño # (Auto) 0.62 K/uL (0.11-0.59) H 05/21/21 08:45 Eos # (Auto) 0.22 K/uL (0-0.5) 05/21/21 08:45 Baso # (Auto) 0.03 K/uL (0-0.2) 05/21/21 08:45 Immature Gran # (Auto) 0.01 K/uL (0.00-0.02) 05/21/21 08:45 POC Sodium 142 mmol/L (135-144) 05/21/21 08:48 Sodium 139 mmol/L (136-145) 05/21/21 08:45 POC Potassium 4.4 mmol/L (3.3-5.0) 05/21/21 08:48 Potassium 4.3 mmol/L (3.5-5.1) 05/21/21 08:45 POC Chloride 102 mmol/L (101-112) 05/21/21 08:48 Chloride 106 mmol/L (98-107) 05/21/21 08:45 Carbon Dioxide 32 mmol/L (21-32) 05/21/21 08:45 POC Total CO2 28 mmol/L (24-31) 05/21/21 08:48 Anion Gap 1.0 (3-11) L 05/21/21 08:45 POC Anion Gap 17.0 mmol/L (16-25) 05/21/21 08:48 POC BUN 28 mg/dl (7-18) H 05/21/21 08:48 BUN 28 mg/dl (7-18) H 05/21/21 08:45 Creatinine 1.02 mg/dl (0.6-1.2) 05/21/21 08:45 POC Creatinine 1.1 mg/dl (0.6-1.3) 05/21/21 08:48 Est Cr Clr Drug Dosing 39.0 ml/min 05/21/21 08:45 Est GFR ( Amer) 59.3 ml/min 05/21/21 08:45 Est GFR (Non-Af Amer) 51.2 ml/min 05/21/21 08:45 BUN/Creatinine Ratio 27.7 (10-20) H 05/21/21 08:45 Glucose 116 mg/dl (70-99) H 05/21/21 08:45 POC Glucose (other) 118 mg/dl (70-99) H 05/21/21 08:48 Calcium 9.8 mg/dl (8.5-10.1) 05/21/21 08:45 POC Ioniz Calcium Jennifer 1.30 mmol/l (1.12-1.32) 05/21/21 08:48 Total Bilirubin 0.4 mg/dl (0.2-1) 05/21/21 08:45 AST 17 U/L (15-37) 05/21/21 08:45 ALT 24 U/L (12-78) 05/21/21 08:45 Alkaline Phosphatase 55 U/L (45-117) 05/21/21 08:45 Total Protein 7.9 gm/dl (6.4-8.2) 05/21/21 08:45 Albumin 3.7 gm/dl (3.4-5.0) 05/21/21 08:45 Globulin 4.2 gm/dl (2.5-4.0) H 05/21/21 08:45 Albumin/Globulin Ratio 0.9 (0.9-2) 05/21/21 08:45 COVID-19 Eval Order Covid19 at [facility] 05/21/21 10:44 SARS-CoV-2 (PCR) NEGATIVE (Negative) 05/21/21 10:44 Impressions Soft Tissue Neck CT 05/21/21 08:36 CT soft tissue neck w con HISTORY: swelling left lower jaw under mandible TECHNIQUE: Multiaxial CT images of the neck were performed following the intravenous administration of 95 cc of Optiray 320. Sagittal and coronal reformations were performed at the workstation by the radiologist. COMPARISON STUDY: None. FINDINGS: There is skin thickening and subcutaneous fat stranding/edema surrounding the body of the left hemimandible. There are mildly enlarged left submandibular lymph nodes. There is mild thickening of the platysma and soft tissue edema along the left anterior neck likely representing extension of the inflammatory change from the left submandibular location. No loculated fluid collections to suggest an abscess. A few punctate foci of gas adjacent to the left hemimandible on images 164 and 166 may be located within the oral cavity rather than a soft tissue gas. Dental artifact partially obscures the oral cavity. Mild asymmetric enhancement within the left submandibular gland in comparison to the right which is also slightly edematous. This could be reactive to the adjacent inflammatory change or represent an additional sialoadenitis. The parotid glands are symmetric. The visualized brain parenchyma and orbits are unremarkable. The pterygopalatine fossa and paratracheal fat spaces are well- maintained. There are few punctate calcifications within the palatine tonsils. Otherwise, the mucosal airways services appear intact. The thyroid gland enhances normally. Prevertebral soft tissues and the epiglottis are normal in thickness. No periapical lucencies identified within the teeth. The paranasal sinuses and mastoid air cells are clear. No suspicious lytic or blastic osseous lesions. A few punctate calcified granulomas seen within the lung apices. The major cervical vessels appear patent. A few asymmetrically enlarged left cervical lymph nodes in comparison to the right. The dominant lymph node on image 206 measures 9 mm. These are likely reactive to the left submandibular inflammatory process. IMPRESSION: 1. A left submandibular inflammatory process as described above with soft tissue edema extending into the left anterior neck. There is associated left submandibular lymphadenopathy with a few borderline-enlarged left cervical lymph nodes. No definite abscess identified. 2. There is also mild asymmetric enhancement within the left submandibular gland which is slightly edematous. This could be reactive to the submandibular inf lammatory change or represent an additional sialoadenitis. 3. No periapical lucencies identified within the teeth. ACT 112: Negative or not required by law. Electronically signed by: Marcos Vo M.D. 05/21/2021 9:43 AM ECG Additional Comments: EKG wtih SR at 81bpm, frequent PACs, DE=323, QRS=88, DDq=083, no ischemic changes Code Status & VTE Plan VTE Prophylaxis Plan VTE Prophylaxis will be ordered: Yes PG Care Time/CCT Total # of Minutes Spent Total Time Spent with Patient: Total time spent is greater than 50% in coordination of care (as documented) at patient's floor/unit and/or counseling patient: Coding Level of Care Code INT OBSERVATION CARE 50M LVL 2 Diagnoses Anxiety F41.9 HTN (hypertension) I10 Hypertension type: essential hypertension Hypothyroid E03.9 Dental infection K04.7 (1) HTN (hypertension) Hypertension type: essential hypertension Qualified Code(s): I10 - Essential (primary) hypertension
[2021-05-21] MEDS ORDERED: LACTATED RINGER'S 1,000 ML IV SCH (13:45)
[2021-05-21] MEDS ORDERED: ONDANSETRON INJ 2 MG/ML 2 ML VIAL IV PRN ×2 (13:51→16:33)
[2021-05-21] MEDS ORDERED: ROCURONIUM BROMIDE 10 MG/ML 5 ML VIAL IV ONE (13:51)
[2021-05-21] MEDS ORDERED: PROPOFOL IV EMULSION 10 MG/ML 20 ML VIAL IV ONE (13:51)
[2021-05-21] MEDS ORDERED: LARYING-O-JET KIT (LTA) ONE (13:51)
[2021-05-21] MEDS ORDERED: fentaNYL citrate 100 MCG/2 ML VIAL ONE (13:51)
[2021-05-21] MEDS ORDERED: ePHEDrine sulfate 50 MG/ML SYR ONE (13:51)
[2021-05-21] MEDS ORDERED: GLYCOPYRROLATE 0.2 MG/ML VIAL ONE (13:51)
[2021-05-21] MEDS ORDERED: SUCCINYLCHOLINE CHLORIDE 20 MG/ML 10 ML VIAL IV ONE (13:51)
[2021-05-21] MEDS ORDERED: ATROPINE SULFATE 0.1 MG/ML 10ML SYR IV PRN (13:51)
[2021-05-21] MEDS ORDERED: LIDOCAINE 2% 2 ML VIAL/AMP(20MG/ML) INFIL ONE (13:51)
[2021-05-21] MEDS ORDERED: DEXAMETHASONE SOD INJ 4 MG/ML VIAL ONE (13:51)
[2021-05-21] MEDS ORDERED: ONDANSETRON INJ 2 MG/ML 2 ML VIAL ONE (13:51)
[2021-05-21] MEDS ORDERED: NEOSTIGMINE METHYLSULFATE 1 MG/ML 10ML VIAL ONE (13:51)
[2021-05-21] MEDS ORDERED: fentaNYL citrate 100 MCG/2 ML VIAL IV PRN (13:51)
[2021-05-21] MEDS ORDERED: CHLORHEXIDINE GLUCONATE 0.12% 480 ML ONE (14:07)
[2021-05-21] MEDS ORDERED: STERILE IRRIGATING OPTH SOLUTION (BSS) 15ML ONE (14:07)
[2021-05-21] MEDS ORDERED: BUPIVACAINE/EPINEPHRINE 0.5% 1:200,000 1.8 ML CARP ONE (14:07)
--- NOTE | 2021-05-21 15:05 | Operative Report ---
PG Post Operative Report Pre & Post Diagnosis Operation Date: 05/21/21 09:40 Pre-Op Diagnosis: Dental Infection from tooth # 19 Post-Op Diagnosis: Dental Infection as above I identified the patient and participated in the time-out.: Yes Procedure Operation Date: 05/21/21 09:40 Actual Procedures p Tooth Extraction 19(Not Applicable) - Parag Hogue DMD s I/D left floor of the mouth - Parag Hogue DMD Surgeon Parag Hogue DMD Wave Soldering Machine Operator none Estimated Blood Loss 1 Findings Consistent with Post-Op Diagnosis Specimens none Drains none Complications none Description of Procedure I&D and extraction of # 19 Actual Procedures p Incision and Drainage Submandibular Abscess; Removal of Tooth #19(Not Applicable) - Parag Hogue DMD Once cleared for surgery general anesthesia was achieved, the eyes were protected by the anesthesia dept criteria. A time out was take for patient ID, antibiotics, equipment and position verification once all agreed the procedure began. Local anesthesia using Marcaine with a vasoconstrictor ( 1.8 ml per site) given into right inferior alveolar nerve A throat pack was placed after the oral cavity was irrigated with saline. Once a surgical level of anesthesia was obtained and the local anesthesia was given time for the blocks the surgery was started. I turned my attention to the infection which was located in the floor of the mouth and submental area. The tongue was elevated and there was also swelling associated with tooth # 19 ( see CT scan report) Incision and Drainage left floor of mouth/ submental area Using a 15 blade an incision was made lateral to the alveolar ridge and medial to the duct of the submandibular gland. Once the incision was made a small amount of pus extruded from the site. A curved hemostat was carefully placed into the infected space along the medial side of the lower jaw and into the submental space. No further drainage was noted. I palpated the chin and submental area and no further drainage was expressed. The area was irrigated with at least 100 ml of NS solution. I now turned my attention to remove the # 19 tooth. Lower # 19 The full thick Muco-periosteal flap was made on the facial aspect from # 26-30. The flap was reflected to expose the the subperiosteal space the bone adjacent to # 19 The drill and rogue was used to remove bone, the tooth was sectioned with a fissure bur and removed with a 301 elevator. When I completed the procedure I inspected the sites to insure all bleeding was controlled. I removed the throat pack and suctioned the throat. A gauze pressure dressings was placed. All instrument and sponge count was correct. the patient was allowed to awake from the anesthesia. Once full awake the anesthesia tube was removed and the patient was taken to the recovery room with all vital sign stable. The patient tolerated the surgery very well. The patient will be admitted to the floor for IV antibiotics. I will see her tomorrow AM I will follow the patient in my office, oral Rx and instructions will be given upon discharge. I attest to the content of the Intraoperative Record and any orders documented therein. Any exceptions are noted below.
[2021-05-21] MEDS ORDERED: HYDROCODONE/ACETAMOPHEN 5/325MG TAB PO PRN (15:08)
[2021-05-21] MEDS ORDERED: ACETAMINOPHEN 325 MG TAB PO STA (15:10)
--- NOTE | 2021-05-21 15:19 | Progress Note ---
Date of Service May 21, 2021 Post Op infection note I extracted tooth # 19 and drained the submandibular and submental space. She tolerated the procedure well To floor for IV antibiotics I requested that the patient use heat while in the hospital I will see her tomorrow to see how she responded to treatment. Diet as tolerated tonight Results & Data ([facility]) Vital Signs (Past 12 Hours) Vital Signs Temp Pulse Pulse Pulse Resp BP BP 05/21/21 14:59 36.6 C 73 16 181/85 H 05/21/21 13:33 36.9 C 91 H 18 165/76 H 05/21/21 12:00 86 16 05/21/21 10:57 95 H 18 05/21/21 08:37 05/21/21 08:20 36.9 C 82 18 161/91 H BP Pulse Ox 05/21/21 14:59 99 05/21/21 13:33 96 05/21/21 12:00 170/86 H 98 05/21/21 10:57 208/82 H 97 05/21/21 08:37 97 05/21/21 08:20 100 PG Care Time/CCT Total # of Minutes Spent Total Time Spent with Patient: Total time spent is greater than 50% in coordination of care (as documented) at patient's floor/unit and/or counseling patient: Coding Level of Care Code None
--- NOTE | 2021-05-21 15:36 | Anesthesiology Progress Note ---
Date of Service May 21, 2021 Anesthesia Post Procedure Vital Signs Vital Signs: Temp Pulse Pulse Pulse Resp BP BP 05/21/21 15:25 96 H 18 167/77 H 05/21/21 15:15 76 20 143/66 H 05/21/21 15:05 82 19 161/83 H 05/21/21 14:59 36.6 C 73 16 181/85 H 05/21/21 13:33 36.9 C 91 H 18 165/76 H 05/21/21 12:00 86 16 05/21/21 10:57 95 H 18 05/21/21 08:37 05/21/21 08:20 36.9 C 82 18 161/91 H BP Pulse Ox 05/21/21 15:25 95 05/21/21 15:15 100 05/21/21 15:05 99 05/21/21 14:59 99 05/21/21 13:33 96 05/21/21 12:00 170/86 H 98 05/21/21 10:57 208/82 H 97 05/21/21 08:37 97 05/21/21 08:20 100 Transfer of Care Handoff Completed per policy Notes Mental Status: alert / awake / arousable and participated in evaluation Patient Amnestic to Procedure: Yes Nausea / Vomiting: adequately controlled Pain: adequately controlled Airway Patency, RR, SpO2: stable & adequate BP & HR: stable & adequate Hydration State: stable & adequate Anesthetic Complications: no major complications apparent and Pt Satisfied with anesthetic care
[2021-05-21] MEDS ORDERED: LORazepam 0.5 MG TAB PO PRN (16:33)
[2021-05-21] MEDS: PIPERACILLIN/TAZOBACTAM 3.375 GM in DEXTROSE 5% 100 ML IV SCH (17:30)
--- NOTE | 2021-05-21 17:51 | Electrocardiogram Report ---
Test Reason : Blood Pressure : / mmHG Vent. Rate : 081 BPM Atrial Rate : 081 BPM P-R Int : 174 ms QRS Dur : 088 ms QT Int : 384 ms P-R-T Axes : 052 026 044 degrees QTc Int : 446 ms Sinus rhythm with Premature atrial complexes Otherwise normal ECG When compared with ECG of 22-DEC-2010 12:46, No significant change was found Confirmed by Fred Knowles ([id number]) on 05/21/2021 5:51:09 PM Referred By: REFERRED SELF Confirmed By:Fred Knowles
[2021-05-22] MEDS: PIPERACILLIN/TAZOBACTAM 3.375 GM in DEXTROSE 5% 100 ML IV SCH ×2 (00:52→09:52)
[2021-05-22] MEDS: LEVOTHYROXINE SODIUM 50 MCG TABLET PO SCH (07:23)
[2021-05-22 08:06] LABS: Basophils # (auto) 0.01 K/uL (0-0.2); Basophils % (auto) 0.1 %; Eosinophils # (auto) 0.01 K/uL (0-0.5); Eosinophils % (auto) 0.1 %; Hematocrit (blood only) 38.4 % (37-47); Hemoglobin 12.3 g/dL (12.0-16.0); Immature Granulocytes # (auto) 0.01 K/uL (0.00-0.02); Immature Granulocytes % (auto) 0.1 %; Lymphocytes # (auto) 0.92 K/uL (1.2-3.4); Lymphocytes % (auto) 11.8 %; Mean Corpuscular Hemoglobin 28.8 pg (25-34); Mean Corpuscular Volume 89.9 fL (80-100); Mean Platelet Volume 11.3 fL (7.4-10.4); Monocytes # (auto) 0.75 K/uL (0.11-0.59); Monocytes % (auto) 9.6 %; Neutrophils % (auto) 78.3 %; Platelet Count 204 K/uL (130-400); RDW Coefficient of Variation 13.8 % (11.5-14.5); RDW Standard Deviation 45.7 fL (36.4-46.3); Red Blood Count 4.27 M/uL (4.2-5.4)
--- NOTE | 2021-05-22 08:30 | Hospitalist Progress Note ---
Date of Service May 22, 2021 Assessment & Plan (1) Dental infection: Plan: 80yo female presenting with redness, swelling and pain in her left mandible. Has been out Amoxicillin outpatient x 2 days with no improvement. Afebrile, non-toxic in appearance. CT with left submandibular inflammatory process with soft tissue edema extending into the left anterior neck with LAD. No abscess. Patient seen by OMFS and found to have tender gingival tissue with deep pocket formation and severe recession on the lingual side of tooth #19. Plan for OR extraction with possible I&D later today. Medically, patient is hypertensive to 208/82 while in the ER. She has since taken her PO medication as well as some Ativan and BP has improved to 170/86. She has no active cardiac disease. PACs present on EKG. Patient with longstanding history of "extra beat" stable and asymptomatic. She is able to complete 4 METS of 05/22 IMPROVING OMFS consulted POD # 1 s/p p Tooth Extraction 19(Not Applicable), I/D left floor of the mouth - Parag Hogue, DMD Was on Zosyn -- switched to Unasyn today and plans for transition to Augmentin tomorrow Rinse mouth, avoid straws, ice to affected area Liquid diet tolerated -- advance as tolerated Tylenol, oxycodone prn pain control (has been utilizing Tylenol today) WBC wnl, afebrile Continue to monitor response To have f/u with Dr. Hogue in office outpt (2) Anxiety: Plan: Chronic Continue Ativan PRN anxiety (3) HTN (hypertension): Plan: Elevated in ER possibly secondary to stress, pain, patient had not yet taken her medication Improved, controlled on her usual lisinopril, HCTZ now that pain controlled Continue home meds Continue to monitor (4) Hypothyroid: Plan: Chronic Continue Synthroid Plan: Continuing IV abx for today Plans for transition to PO tomorrow and discharge with f/u with Dr. Hogue outpatient Admission and Anticipated Discharge Date Admission Date: May 21, 2021 Subjective Patient evaluated this morning. Doing well. Tolerating diet and ordered mashed potatoes for dinner. Continuing on IV abx for today and transition to oral tomorrow. Has been utilizing ice faithfully. She is eager to f/u with dentist for possible extractions of other chipped/cracked teeth to prevent current issue in future. Less swelling to chin and less erythema to face. Switched to Unasyn by Dr. Hogue this morning. If continued to do well considering d/c tomorrow. No fever, chills, chest pain, shortness of breath, difficulty swallowing/clearing secretion, abdominal pain, nausea or vomiting at this time. Review of Systems Review of Systems: All systems reviewed & are unremarkable except as noted in HPI & below Physical Exam Physical Exam: General: patient resting comfortably, NAD, non-toxic in appearance, AA&O x 4 Skin: warm, dry, intact, slight redness to left mandibular jaw and anterior neck (improving) HEENT: NC/AT, PERRL, EOMI, anicteric sclera, conjunctiva without injection, external ear normal to inspection and nontender, nares patent, moist mucus membranes,NEGATIVE trismus, decreased swelling of submandibular region, neck supple, trachea midline, no LAD, no thyromegaly, no JVD, swelling of left mandible, decreased tenderness to palpation. numerous teeth with fillings, some cracks to R. Extraction of #19 with suture to floor of mouth. minimally tender to palpation. no drainage noted Heart: +S1/S2, regular with frequent ectopy, 2/6 IVONE at LSB, no rubs/gallops Lungs: equal air entry bilaterally, no rales/rhonchi/wheezes Abd: +BS, soft, NT/ND, no masses/organomegaly/ascites Ext: warm, 2+ pulses in UE/LE bilaterally, no clubbing/cyanosis or edema Neuro: nonfocal, patient AA&O x 4, speech intact, no facial droop, moving all extremities on command with equal strength 5/5 Results & Data Results & Data ([facility]) Vital Signs (Past 12 Hours) Vital Signs Temp Pulse Resp BP Pulse Ox 05/22/21 03:18 36.7 C 67 15 123/66 94 05/21/21 23:28 36.6 C 74 15 114/66 96 Laboratory Results 05/22/21 05/22/21 Range/Units 07:41 07:41 WBC 7.80 (4.8-10.8) K/uL RBC 4.27 (4.2-5.4) M/uL Hgb 12.3 (12.0-16.0) g/dL Hct 38.4 (37-47) % MCV 89.9 (80-100) fL MCH 28.8 (25-34) pg MCHC 32.0 (32-36) g/dL RDW Std Deviation 45.7 (36.4-46.3) fL RDW Coeff of Jaye 13.8 (11.5-14.5) % Plt Count 204 (130-400) K/uL MPV 11.3 H (7.4-10.4) fL Immature Gran % (Auto) 0.1 % Neut % (Auto) 78.3 % Lymph % (Auto) 11.8 % Glynn % (Auto) 9.6 % Eos % (Auto) 0.1 % Baso % (Auto) 0.1 % Neut # (Auto) 6.10 (1.4-6.5) K/uL Lymph # (Auto) 0.92 L (1.2-3.4) K/uL Glynn # (Auto) 0.75 H (0.11-0.59) K/uL Eos # (Auto) 0.01 (0-0.5) K/uL Baso # (Auto) 0.01 (0-0.2) K/uL Immature Gran # (Auto) 0.01 (0.00-0.02) K/uL Sodium 140 (136-145) mmol/L Potassium 3.9 (3.5-5.1) mmol/L Chloride 106 (98-107) mmol/L Carbon Dioxide 31 (21-32) mmol/L Anion Gap 3.0 (3-11) BUN 18 (7-18) mg/dl Creatinine 0.83 (0.6-1.2) mg/dl Est Cr Clr Drug Dosing 47.9 ml/min Est GFR ( Amer) 76.1 ml/min Est GFR (Non-Af Amer) 65.7 ml/min BUN/Creatinine Ratio 21.3 H (10-20) Glucose 102 H (70-99) mg/dl Calcium 9.3 (8.5-10.1) mg/dl PG Care Time/CCT Total # of Minutes Spent Total Time Spent with Patient: Total time spent is greater than 50% in coordination of care (as documented) at patient's floor/unit and/or counseling patient: Coding Level of Care Code 46206 Subseq Obs Care Lvl 2 Diagnoses Dental infection K04.7 Anxiety F41.9 HTN (hypertension) I10 Hypertension type: essential hypertension Hypothyroid E03.9 (1) HTN (hypertension) Hypertension type: essential hypertension Qualified Code(s): I10 - Essential (primary) hypertension
[2021-05-22 09:15] LABS: BUN Creatinine Ratio 21.3 (10-20); Calcium 9.3 mg/dl (8.5-10.1); Creatinine Clr Calc Pharmacy 47.9 ml/min; Est GFR (African American) 76.1 ml/min; Est GFR (Non-African American) 65.7 ml/min; Potassium 3.9 mmol/L (3.5-5.1)
[2021-05-22] MEDS: LISINOPRIL/HCTZ 10/12.5MG TAB PO SCH (09:51)
[2021-05-22] MEDS: ACETAMINOPHEN 325 MG TAB PO PRN ×3 (10:54→23:55)
[2021-05-22] MEDS ORDERED: AMPICILLIN/SULBACTAM CONSULT ACTIVE PRN (14:25)
[2021-05-22] MEDS: AMPICILLIN/SULBACTAM SOD 3,000 MG in 0.9 % SODIUM CHLORIDE 100 ML IV SCH ×2 (18:29→23:49)
[2021-05-23] MEDS: LEVOTHYROXINE SODIUM 50 MCG TABLET PO SCH (05:39)
[2021-05-23] MEDS: AMPICILLIN/SULBACTAM SOD 3,000 MG in 0.9 % SODIUM CHLORIDE 100 ML IV SCH (06:17)
[2021-05-23 07:29] VITALS: TEMP 98.8; O2SAT 97
[2021-05-23] MEDS: oxyCODONE HCL IR 5 MG TAB (IMMEDIATE RELEASE) PO PRN ×2 (08:57→12:53)
--- NOTE | 2021-05-23 10:10 | Surgery Progress Note ---
Date of Service May 231Post Op infection evaluation The infected area is now healing very well. Swelling is almost gone and is very soft and the tissue is healing well No drainage is noted. Infection has responded very well to the antibiotics and the I and D. I requested that the patient continue with massage, heat and wound care. At this time the area is well healed and responded well to treatment. RTC to my office in 2 weeks for follow up OK for Discharge today Suggest Amoxicillin 500 mg q 8 hrs x 10 day Vicodin 5/325 x 15 1 q 4 hrs prn pain Assessment & Plan Admission and Anticipated Discharge Date Admission Date: May 21, 2021 Results & Data ([facility]) Vital Signs (Past 12 Hours) Vital Signs Temp Pulse Resp BP Pulse Ox 05/23/21 07:25 37.1 C 73 16 110/64 97 05/22/21 22:53 37.2 C 69 16 134/61 98 PG Care Time/CCT Total # of Minutes Spent Total Time Spent with Patient: Total time spent is greater than 50% in coordination of care (as documented) at patient's floor/unit and/or counseling patient: Coding Level of Care Code 24438 Subseq Hosp Care Lvl 1
[2021-05-23 10:30] VITALS: BP 126/66; PULSE 67
[2021-05-23] MEDS: LISINOPRIL/HCTZ 10/12.5MG TAB PO SCH (10:30)
--- NOTE | 2021-05-23 11:28 | Discharge Summary ---
Date of Service May 23, 2021 Admission HPI Per Admitting Provider Nunu Shah is a pleasant 80yo female with history of HTN, Hypothyroidism presenting with left facial pain and swelling. She first developed swelling of the left mandibular jaw 3 days ago. Swelling and pain have been progressive. She was seen by the dentist 2 days ago and was prescribed Amoxicillin. She has been taking that medication as prescribed. Has had continued pain and swelling as well as redness of the jaw and neck which started last evening. No additional complaints. She denies fever/chills/CP/SOB/cough. No changes in voice. No throat swelling or tightness. She is unable to fully open her mouth. Blood pressure elevated in ER. She took her Lisinopril/HCTZ and Ativan while in the ER with improvement. ER Course: Dexamethasone 10mg IV, Zosyn 4.5gm, NSS Admission Exam Per Admitting Provider General: patient resting comfortably, NAD, non-toxic in appearance, AA&O x 4, anxious Skin: warm, dry, intact, slight redness to left mandibular jaw and anterior neck HEENT: NC/AT, PERRL, EOMI, anicteric sclera, conjunctiva without injection, external ear normal to inspection and nontender, nares patent, moist mucus membranes, +trismus, slight swelling of submandibular region, neck supple, trachea midline, no LAD, no thyromegaly, no JVD, swelling of left mandible, tender to palpation Heart: +S1/S2, regular with frequent ectopy, 2/6 IVONE at LSB, no rubs/gallops Lungs: equal air entry bilaterally, no rales/rhonchi/wheezes Abd: +BS, soft, NT/ND, no masses/organomegaly/ascites Ext: warm, 2+ pulses in UE/LE bilaterally, no clubbing/cyanosis or edema Neuro: nonfocal, patient AA&O x 4, speech intact, no facial droop, moving all extremities on command with equal strength 5/5 Principal Diagnosis Dental Infection with Abscess Discharge Exam General: patient resting comfortably, NAD, non-toxic in appearance, AA&O x 4 Skin: warm, dry, intact, slight redness to left mandibular jaw and anterior neck (improving), less induration HEENT: NC/AT, PERRL, EOMI, anicteric sclera, conjunctiva without injection, e xternal ear normal to inspection and nontender, nares patent, moist mucus membranes,NEGATIVE trismus, decreased swelling of submandibular region, neck supple, trachea midline, no LAD, no thyromegaly, no JVD, swelling of left mandible, decreased tenderness to palpation. numerous teeth with fillings, some cracks to R. Extraction of #19 with suture to floor of mouth. minimally tender to palpation. no drainage noted Heart: +S1/S2, regular with frequent ectopy, 2/6 IVONE at LSB, no rubs/gallops Lungs: equal air entry bilaterally, no rales/rhonchi/wheezes Abd: +BS, soft, NT/ND, no masses/organomegaly/ascites Ext: warm, 2+ pulses in UE/LE bilaterally, no clubbing/cyanosis or edema Neuro: nonfocal, patient AA&O x 4, speech intact, no facial droop, moving all extremities on command with equal strength 5/5 Discharge Data Allergies Allergy/AdvReac Type Severity Reaction Status Date / Time No Known Drug Allergies Allergy Verified 04/03/21 09:16 Consultations 05/21/21 11:13 ED Decision to Admit Stat Procedures Performed Operation Date: 05/21/21 09:40 Actual Procedures p Tooth Extraction 19(Not Applicable) - Parag Hogue DMD s with Drainage - Parag Hogue DMD Ordered Studies 05/21/21 08:36 CT soft tissue neck w con Stat Hospital Course (1) Dental infection: 80yo female presenting with redness, swelling and pain in her left mandible. Has been out Amoxicillin outpatient x 2 days with no improvement. Afebrile, non-toxic in appearance. CT with left submandibular inflammatory process with soft tissue edema extending into the left anterior neck with LAD. No abscess. Patient seen by OMFS and found to have tender gingival tissue with deep pocket formation and severe recession on the lingual side of tooth #19. Plan for OR extraction with possible I&D later today. Medically, patient is hypertensive to 208/82 while in the ER. She has since taken her PO medication as well as some Ativan and BP has improved to 170/86. She has no active cardiac disease. PACs present on EKG. Patient with longst anding history of "extra beat" stable and asymptomatic. She is able to complete 4 METS of OMFS consulted s/p p Tooth Extraction 19, I/D left floor of the mouth with Parag Hogue, DMD Was on Zosyn -- switched to Unasyn and discharged on Amoxicillin and pain control Continue risk with antiseptic Heat Soft diet, no straws WBC wnl, afebrile Follow up with Dr. Hogue in office outpatient Of note, plans on f/u with dentist for discussion about plate in future given numerous fillings/cracked teeth to prevent issues in future (2) Anxiety: Chronic Continue Ativan PRN anxiety (3) HTN (hypertension): Elevated in ER possibly secondary to stress, pain, patient had not yet taken her medication Improved with pain control Continued on her home meds (4) Hypothyroid: Chronic Continued Synthroid Discharged home on Amoxicillin and pain control F/u with Dr. Hogue in office outpatient Total Time Total Time Spent Total Time Spent (In Minutes): 35 Discharge Plan Discharge Items Patient Disposition: Home - Self-Care Reason For Visit: DENTAL INFECTION Discharge Diagnosis: s/p oral/facial left side infction Condition on Discharge: Good Activity: Resume your previous activity Lifting: Gradually increase as tolerated Bathing: No limitations Exercise/Sports: Gradually increase as tolerated Weightbearing: Full weightbearing Weightbearing Comment: as tolerated Non-emergency contact: Primary Care Provider and Surgeon Call non-emergency contact if: your symptoms worsen, your pain is worsening, your temperature is above 101.5, your wound has increased redness, your wound has increased drainage and your wound pain has increased Follow-up/Referrals: Oswaldo Starks MD [Primary Care Provider] - 05/26/21 9:30 am Parag Hogue DMD [Physician] - 06/06/21 10:15 am Diet: Regular Diet Texture: Easy to Chew Diet Comment: advance diet as tolerated Addtl Attending Provider Instructions: ADDITIONAL ACTIVITY RECOMMENDATIONS: * [place] teeth after every meal. It is very important to keep your mouth clean to prevent infection. * Starting tonight rinse with the Peridex as directed then 2 x a day * it is very important to keep well hydrated, this prevents fever and possible dry socket pain SPECIAL CARE INSTRUCTIONS: *It is not uncommon that between day 2-4 that your swelling will be at its worst this is very normal, do not be alarmed. * apply heat (hot water bottle or heating pad) for the next two days, as often as possible. * Tomorrow start rinsing your mouth with 1/2 teaspoon salt in 8 ounces warm water. This rinse should be used every 4-6 hours. * Some swelling is common. It should gradually decrease within 4-[address] Hogue at [phone] if any questions * You may experience some discomfort for a few days. If pain or swelling increases, Call Dr Hogue * Return to the office for a follow up check up if one was given to you. * If you do not have a follow up appointment please call the office at [phone] and set one up for 10-15 days after your surgery Addtl Youth Worker Provider Instructions: You can take Tylenol as needed for any minimum/mild pain, but oxycodone has been ordered for breakthrough pain as you noted better control with this over the hydrocodone. Please note pain medication can cause some constipation, and you may want to consider over the counter stool softener to help with this if this occurs. Please follow up with Dr. Hogue in the next week. Return to the emergency department with any fever, chills, difficulty swallowing, keeping up with oral intake, chest pain, shortness of breath, or for any other symptoms that are concerning for you. Please follow up with PCP in the next week to monitor your progress after discharge. It has been a pleasure being a part of the medical team providing for you while you have been in the hospital. Take care! Pending Studies at Discharge: No Stand-Alone Forms: My [facility], Opioid Pain Management Medications and DC Order Prescriptions: New amoxicillin 500 mg tablet 500 mg PO Q8H 7 Days Qty: 21 RF: 0 oxycodone 5 mg Tablet 5 mg PO Q4H PRN (Reason: pain) Qty: 12 RF: 0 Continued lorazepam 0.5 mg tablet 0.5 mg PO DAILY PRN (Reason: anxiety) Qty: 30 RF: 0 Lactobacillus acidophilus [Acidophilus] capsule 100 mg PO DAILY RF: 0 calcium carbonate 600 mg calcium (1,500 mg) tablet 600 mg PO DAILY RF: 0 flaxseed oil 1,000 mg capsule 1,000 mg PO DAILY RF: 0 multivitamin tablet 1 tab PO DAILY RF: 0 ascorbic acid (vitamin C) 1,000 mg tablet 1 gm PO DAILY RF: 0 vitamin E (dl, acetate) 400 unit capsule 400 units PO DAILY RF: 0 cholecalciferol (vitamin D3) 1,000 unit capsule 2,000 units PO DAILY RF: 0 oregano oil 510 mg PO DAILY RF: 0 magnesium oxide 500 mg capsule 500 mg PO DAILY RF: 0 levothyroxine 50 mcg tablet 50 mcg PO QAM RF: 0 lisinopril-hydrochlorothiazide 10-12.5 mg tablet 1 tab PO QAM RF: 0 Discharge Orders: Discharge Order (Routine); Ordered 05/23/21 Ordered By: Ranjana Najera Admission Data Admit Date/Time: 05/21/21 12:08 Attending Provider: Storm Haynes Admit Provider: Christin Lund Primary Care Provider: Oswaldo Starks Other Providers: Christin Lund Other Interventions: Discharge Summary Assessment (RN) Last Done: 05/23/21 11:39 Supervising Physician Co-Signing Physician Notes Patient seen and examined at bedside by myself. My history of hospital course and physical exam did not differ from above. Discussed discharge planning with DONG Najera and patient. Will complete antibiotic treatment for tooth abscess with amoxicllin. I reviewed above note and agree with it. Coding Level of Care Code 43460 OBS Care - Discharge Diagnoses Dental infection K04.7 Anxiety F41.9 HTN (hypertension) I10 Hypertension type: essential hypertension Hypothyroid E03.9
[2021-05-23] MEDS ORDERED: AMOXICILLIN 500 MG CAP PO ONE (12:00)
== END 2021-05-23 14:12 | disposition home or self-care (01) ==
LOC: 3N 08:18 → ED 08:18 → SUATTDRO 12:08

== ENCOUNTER 2023-12-10 19:01 | Observation (INO) ==
[2023-12-10 19:28] LABS: Basophils # (auto) 0.05 K/uL (0.00-0.20); Basophils % (auto) 0.7 %; Eosinophils # (auto) 0.09 K/uL (0.00-0.50); Eosinophils % (auto) 1.3 %; Hematocrit (blood only) 40.8 % (37.0-47.0); Hemoglobin 13.1 g/dl (12.0-16.0); Immature Granulocytes # (auto) 0.02 K/uL (0.01-0.20); Immature Granulocytes % (auto) 0.3 %; Lymphocytes # (auto) 1.65 K/uL (1.20-3.40); Lymphocytes % (auto) 23.8 %; Mean Corpuscular Hemoglobin 28.7 pg (25.0-34.0); Mean Corpuscular Hgb Conc 32.1 g/dL (32.0-36.0); Mean Corpuscular Volume 89.5 fL (80.0-100.0); Mean Platelet Volume 10.7 fL (9.4-12.4); Monocytes # (auto) 0.51 K/uL (0.11-0.59); Monocytes % (auto) 7.3 %; Neutrophils # (auto) 4.62 K/uL (1.40-6.50); Neutrophils % (auto) 66.6 %; Platelet Count 219 K/uL (130-400); RDW Coefficient of Variation 13.5 % (11.5-14.5); RDW Standard Deviation 44.4 fL (36.4-46.3); Red Blood Count 4.56 M/uL (4.20-5.40); White Blood Count 6.94 K/ul (4.8-10.8)
[2023-12-10 19:46] LABS: INR 0.9 (0.9-1.1); Partial Thromboplastin Ratio 0.9; Partial Thromboplastin Time 26 Seconds (21-31)
[2023-12-10 20:21] LABS: Albumin Level 4.1 gm/dl (3.4-5.0); Bilirubin,Total 0.3 mg/dl (0.2-1.0); Calcium 10.3 mg/dl (8.6-10.3)
[2023-12-10 20:27] LABS: Albumin Globulin Ratio 1.2 (0.9-2); BUN Creatinine Ratio 25.3 (10-20); Creatinine Clr Calc Pharmacy 41.5 ml/min; Est GFR (African American) 70.4 ml/min; Est GFR (Non-African American) 60.7 ml/min; Globulin 3.3 gm/dl (2.5-4.0); Total Protein 7.4 gm/dl (6.0-8.3)
[2023-12-10] MEDS: LABETALOL HCL IV 5 MG/ML 20ML IV STA (21:42)
--- NOTE | 2023-12-10 21:43 | Emergency Department Note ---
Impression & Plan Chest pain, Hypertensive urgency, Elevated troponin ED Provider Note NAME: JOANN NARAYANHOOD AGE: 83 SEX: F : 1940 ARRIVES VIA: Walk-In INFORMANT: Patient ED PROVIDER(S): Uziel Washington DO CHIEF COMPLAINT: chest pain HPI: Patient is an 83-year-old female who presents to the ER with a past medical history of anxiety, diabetes, hypertension, hyperlipidemia and hypothyroidism who presents to the ER for chest pain which started this morning around 7 AM. It was present off and on throughout the day. Currently has no chest pain. She notes that 2 days ago she started having some left medial elbow pain with numbness in 4thand 5th digits. Denies any shortness of breath. No belly pain, nausea, vomiting, or diarrhea. No dysuria, urgency, or frequency. She notes she took all her medications today. No other exacerbating or remitting factors. ADDITIONAL HISTORY OBTAINED: Per HPI Chronic Medical/Social Conditions Affecting Care: Per HPI PAST MEDICAL HISTORY:See Below PAST SURGICAL HISTORY:See Below FAMILY HISTORY:See Below SOCIAL HISTORY:See Below HOME MEDICATIONS:See Below ALLERGIES:See Below VITALS:See Below PHYSICAL EXAMINATION: GENERAL: Sitting up in bed, alert, well appearing, well nourished, no distress, non-toxic EYE EXAM: normal conjunctiva. PERRL and EOM's grossly intact. OROPHARYNX: no exudate, no erythema, lips, buccal mucosa, and tongue normal and mucous membranes are moist NECK: supple, no nuchal rigidity, no adenopathy, non-tender LUNGS: Clear to auscultation. Normal chest wall mechanics HEART: no murmurs, S1 normal and S2 normal ABDOMEN: abdomen soft, non-tender, normo-active bowel sounds, no masses, no rebound or guarding. UPPER EXTREMITIES: upper extremities are grossly normal. LOWER EXTREMITIES: No pitting edema. Surgical NEURO EXAM: Normal sensorium, cranial nerves II-XII grossly intact, normal speech, no gross weakness of arms, no gross weakness of legs. MEDICAL DECISION MAKING: Patient is an 83-year-old female who presents ER for above-stated complaint. IV was established blood work was obtained. Labs show no significant leukocytosis or anemia. INR unremarkable. BMP with LFTs bilirubin was unremarkable. Initial troponin was negative but repeat elevated to 30. Systolic pressures were initially 230. She was given IV labetalol. This was followed by hydralazine. Systolic pressures trended down to 170s. She was updated bedside. She had no chest pain while she was here. Chest x-ray was unremarkable. Case was discussed with the hospitalist Dr. Lisandro Lund for further evaluation management treatment. Consults/Care Managements Discussions: Per [facility] Triage Nursing notes reviewed. Limited review of prior medical records performed Vital Signs: reviewed and remarkable for HTN Differential diagnosis: Cardiac ischemia, aortic dissection, pulmonary embolism, pneumothorax, pneumonia, pericarditis, myocarditis, esophageal rupture, GERD, cholecystitis, pancreatitis, musculoskeletal, as well as other pathologies. ER treatment provided: See below Diagnostics interpreted by me include EKG and cardiac monitoring as listed below: -Cardiac Monitoring: An order was placed for continuous cardiac monitoring. The monitor shows a rate of 85 with sinus rhythm. -ECG: Sinus rhythm rate 77 Normal axis No PVCs QTc 418 -Laboratory studies:Interpreted by me as stated above in MDM and shown below. Imaging studies: Xrays: As interpreted by me: Portable AP upright 1 view of the chest shows no focal infiltrate CTs show: none Procedures:none Critical Care: I have personally spent 32 minutes of critical care time in the direct management of this patient. This includes bedside care, interpretation of diagnostic studies, and testing, discussion with consultants, patient, and family members, and other required patient management activities. This 32 minutes is in excess of all separately billable procedures. Past Med/Surg History Medical History History of cystocele History of kidney stones HTN (hypertension) Hyperlipidemia Hypothyroid Osteoporosis Pelvic relaxation PSVT (paroxysmal supraventricular tachycardia) Submandibular abscess Thyroid disorder Surgical History History of cataract surgery History of colonoscopy History of tooth extraction History of tubal ligation History of vaginal hysterectomy Family History Brother Myocardial infarction Sister Ovarian cancer Other Family history of diabetes mellitus Hypertension Kidney disease Denies family history of Prostate cancer Breast cancer Colorectal cancer Social History Smoking Status: Never smoker Second Hand Exposure: No; Do You Dip or Chew Tobacco: No; Hx Alcohol Use: No Hx Substance Use: No Preferred Language: Burkinan Communication Ability: Effective Visual Impairment: No Limitations Hearing Ability: Normal Roller Skater Required: No Beliefs That Will Affect Care: None marital status: Current Living Situation: Spouse current occupational status: retired How many Children do You have: 4 Feels Safe at Home: Yes Childhood Exposure to Second-Hand Smoke: No Diet: regular Diet Comment: regular caffeine: No during the past year weight has: remained stable Dental Care, Regularly: Yes Physical Activity Frequency: Daily Seatbelt Use: always Sunscreen Use: Yes Assistive Devices: None Allergies Allergies Allergy/AdvReac Type Severity Reaction Status Date / Time No Known Allergies Allergy Verified 12/10/23 23:34 Home Meds Home Medications Medication Instructions Recorded Confirmed ascorbic acid (vitamin C) 1,000 mg 1 gm PO DAILY 07/12/19 12/10/23 tablet multivitamin 1 tab PO DAILY 07/12/19 12/10/23 Lactobacillus acidophilus 10 10,000 mmu cells PO DAILY 12/10/23 12/10/23 billion cell capsule (Probiotic) cholecalciferol (vitamin D3) 50 50 mcg PO DAILY 12/10/23 12/10/23 mcg (2,000 unit) capsule (Vitamin D3) clobetasol 0.05 % scalp solution 1 applic topical DIRECTED PRN 12/10/23 12/10/23 SCALP IRRITATION levothyroxine 50 mcg tablet 50 mcg PO DAILYBB 12/10/23 12/10/23 lisinopril 10 1 tab PO DAILY 12/10/23 12/10/23 mg-hydrochlorothiazide 12.5 mg tablet lorazepam 0.5 mg tablet 0.5 mg PO HS PRN anxiety 12/10/23 12/10/23 Results & Data (ED) Vital Signs Vital Signs - 24 hr 12/10/23 19:04 12/10/23 21:34 12/10/23 21:37 Temperature 36.3 C L Temperature Source Temporal Artery Scan Pulse Rate 88 83 Pulse Rate [Apical] 84 Pulse Rate from SpO2 Sensor Respiratory Rate 17 16 Respiratory Effort / Characteristics Non-Labored Spontaneous Non-Labored Respiratory Depth Normal Normal Respiratory Pattern Regular Blood Pressure 237/99 H Blood Pressure [Right Arm] 216/114 H Blood Pressure Mean 145 Blood Pressure Mean [Right Arm] 148 Blood Pressure Position [Right Arm] Sitting Pulse Oximetry 97 97 Oxygen Delivery Method Room Air Room Air Sepsis Recent Fever Within 48 Hours No Sepsis New/Unexplained Change in Mental Status No Sepsis Action Taken by Nursing No Action Required 12/10/23 21:38 12/10/23 21:42 12/10/23 22:00 Temperature Temperature Source Pulse Rate 84 76 74 Pulse Rate [Apical] Pulse Rate from SpO2 Sensor 81 69 Respiratory Rate 16 22 Respiratory Effort / Characteristics Respiratory Depth Respiratory Pattern Blood Pressure 216/114 H Blood Pressure [Right Arm] Blood Pressure Mean Blood Pressure Mean [Right Arm] Blood Pressure Position [Right Arm] Pulse Oximetry 99 98 Oxygen Delivery Method Sepsis Recent Fever Within 48 Hours Sepsis New/Unexplained Change in Mental Status Sepsis Action Taken by Nursing 12/10/23 22:00 12/10/23 22:10 12/10/23 22:10 Temperature Temperature Source Pulse Rate 66 Pulse Rate [Apical] Pulse Rate from SpO2 Sensor 66 Respiratory Rate 20 Respiratory Effort / Characteristics Respiratory Depth Respiratory Pattern Blood Pressure 197/106 H 182/79 H Blood Pressure [Right Arm] Blood Pressure Mean 126 123 Blood Pressure Mean [Right Arm] Blood Pressure Position [Right Arm] Pulse Oximetry 93 Oxygen Delivery Method Sepsis Recent Fever Within 48 Hours Sepsis New/Unexplained Change in Mental Status Sepsis Action Taken by Nursing 12/10/23 22:30 12/10/23 22:43 12/10/23 22:43 Temperature Temperature Source Pulse Rate 68 69 Pulse Rate [Apical] Pulse Rate from SpO2 Sensor 71 63 Respiratory Rate 21 25 H Respiratory Effort / Characteristics Respiratory Depth Respiratory Pattern Blood Pressure 200/80 H Blood Pressure [Right Arm] Blood Pressure Mean 157 Blood Pressure Mean [Right Arm] Blood Pressure Position [Right Arm] Pulse Oximetry 97 97 Oxygen Delivery Method Sepsis Recent Fever Within 48 Hours Sepsis New/Unexplained Change in Mental Status Sepsis Action Taken by Nursing 12/10/23 23:00 12/10/23 23:01 12/10/23 23:01 Temperature Temperature Source Pulse Rate 70 74 Pulse Rate [Apical] Pulse Rate from SpO2 Sensor 69 75 Respiratory Rate 18 22 Respiratory Effort / Characteristics Respiratory Depth Respiratory Pattern Blood Pressure 205/91 H Blood Pressure [Right Arm] Blood Pressure Mean 131 Blood Pressure Mean [Right Arm] Blood Pressure Position [Right Arm] Pulse Oximetry 96 97 Oxygen Delivery Method Sepsis Recent Fever Within 48 Hours Sepsis New/Unexplained Change in Mental Status Sepsis Action Taken by Nursing 12/10/23 23:30 12/10/23 23:30 12/10/23 23:38 Temperature Temperature Source Pulse Rate 75 Pulse Rate [Apical] Pulse Rate from SpO2 Sensor 74 82 Respiratory Rate 22 Respiratory Effort / Characteristics Respiratory Depth Respiratory Pattern Blood Pressure 177/86 H Blood Pressure [Right Arm] Blood Pressure Mean 123 Blood Pressure Mean [Right Arm] Blood Pressure Position [Right Arm] Pulse Oximetry 93 95 Oxygen Delivery Method Sepsis Recent Fever Within 48 Hours Sepsis New/Unexplained Change in Mental Status Sepsis Action Taken by Nursing 12/10/23 23:38 12/11/23 00:00 12/11/23 00:00 Temperature Temperature Source Pulse Rate 79 Pulse Rate [Apical] Pulse Rate from SpO2 Sensor Respiratory Rate 16 Respiratory Effort / Characteristics Respiratory Depth Respiratory Pattern Blood Pressure 184/98 H 162/74 H Blood Pressure [Right Arm] Blood Pressure Mean 153 126 Blood Pressure Mean [Right Arm] Blood Pressure Position [Right Arm] Pulse Oximetry Oxygen Delivery Method Sepsis Recent Fever Within 48 Hours Sepsis New/Unexplained Change in Mental Status Sepsis Action Taken by Nursing Laboratory Data 12/10/23 19:18 12/10/23 19:18 Lab Results 12/10/23 12/10/23 Range/Units 19:18 23:00 WBC 6.94 (4.8-10.8) K/ul RBC 4.56 (4.20-5.40) M/uL Hgb 13.1 (12.0-16.0) g/dl Hct 40.8 (37.0-47.0) % MCV 89.5 (80.0-100.0) fL MCH 28.7 (25.0-34.0) pg MCHC 32.1 (32.0-36.0) g/dL RDW Std Deviation 44.4 (36.4-46.3) fL RDW Coeff of Jaye 13.5 (11.5-14.5) % Plt Count 219 (130-400) K/uL MPV 10.7 (9.4-12.4) fL Immature Gran % (Auto) 0.3 % Neut % (Auto) 66.6 % Lymph % (Auto) 23.8 % [place] % (Auto) 7.3 % Eos % (Auto) 1.3 % Baso % (Auto) 0.7 % Neut # (Auto) 4.62 (1.40-6.50) K/uL Lymph # (Auto) 1.65 (1.20-3.40) K/uL [place] # (Auto) 0.51 (0.11-0.59) K/uL Eos # (Auto) 0.09 (0.00-0.50) K/uL Baso # (Auto) 0.05 (0.00-0.20) K/uL Immature Gran # (Auto) 0.02 (0.01-0.20) K/uL PT 10.0 (9.0-12.0) Seconds INR 0.9 (0.9-1.1) APTT 26 (21-31) Seconds PTT Ratio 0.9 Sodium 139 (136-145) mmol/L Potassium 4.0 (3.5-5.1) mmol/L Chloride 102 (98-107) mmol/L Carbon Dioxide 28 (21-32) mmol/L Anion Gap 9 (3-11) BUN 22 (6-23) mg/dl Creatinine 0.87 (0.6-1.2) mg/dl Est Cr Clr Drug Dosing 41.5 ml/min Est GFR ( Amer) 70.4 ml/min Est GFR (Non-Af Amer) 60.7 ml/min BUN/Creatinine Ratio 25.3 H (10-20) Glucose 134 H (70-99(Fasting)) mg/dl Calcium 10.3 (8.6-10.3) mg/dl Phosphorus 3.4 (2.5-4.9) mg/dl Magnesium 1.9 (1.7-2.4) mg/dl Total Bilirubin 0.3 (0.2-1.0) mg/dl AST 20 (13-39) U/L ALT 15 (7-52) U/L Alkaline Phosphatase 50 (34-104) U/L Troponin I High Sens 11.0 29.7 H D (0-14) pg/ml Total Protein 7.4 (6.0-8.3) gm/dl Albumin 4.1 (3.4-5.0) gm/dl Globulin 3.3 (2.5-4.0) gm/dl Albumin/Globulin Ratio 1.2 (0.9-2) Administered Medications Discontinued Medications Amlodipine Besylate (Amlodipine Besylate 5 Mg Tab) 5 mg PO NOW ONE Stop: 12/10/23 23:13 Last Admin: 12/10/23 23:38 Dose: 5 mg Documented By: MICHAEL Hydralazine HCl (Hydralazine 10 Mg Tab) 10 mg PO NOW STA Stop: 12/10/23 23:13 Last Admin: 12/11/23 00:13 Dose: Not Given Documented By: MICHAEL Hydralazine HCl (Hydralazine Hcl 20 Mg/Ml Vial) 10 mg IV NOW STA Stop: 12/10/23 23:20 Last Admin: 12/10/23 23:38 Dose: 10 mg Documented By: MICHAEL Labetalol HCl (Labetalol Hcl Iv 5 Mg/Ml 20ml) 10 mg IV NOW STA Stop: 12/10/23 21:39 Last Admin: 12/10/23 21:42 Dose: 10 mg Documented By: MICHAEL Co-signed By: ANGY Discharge Plan Visit Data Chief Complaint: Cardiac Assessment Stated Complaint: PAIN IN ARM AND CHEST PAIN ED Provider: Uziel Washington Discharge Problem: Chest pain, Hypertensive urgency, Elevated troponin Forms Stand Alone Forms: My [facility] 422 Group Prescriptions Prescriptions: No Action multivitamin tablet 1 tab PO DAILY ascorbic acid (vitamin C) 1,000 mg tablet 1 gm PO DAILY cholecalciferol (vitamin D3) [Vitamin D3] 50 mcg (2,000 unit) Capsule 50 mcg PO DAILY Probiotic 10 billion cell Capsule 10,000 mmu cells PO DAILY lorazepam 0.5 mg tablet 0.5 mg PO HS PRN (Reason: anxiety) levothyroxine 50 mcg tablet 50 mcg PO DAILYBB Rx Instructions: TAKE ONE TABLET BY MOUTH EVERY MORNING lisinopril-hydrochlorothiazide 10-12.5 mg tablet 1 tab PO DAILY Rx Instructions: TAKE ONE TABLET BY MOUTH EVERY DAY clobetasol 0.05 % solution 1 applic topical DIRECTED PRN (Reason: SCALP IRRITATION) Referrals Referrals: Porsha Sargent DO [Primary Care Provider] - Discharge Problem: Chest pain Qualifiers: Chest pain type: unspecified Qualified Code(s): R07.9 - Chest pain, unspecified
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
[2023-12-10] MEDS: hydrALAZINE HCL 20 MG/ML VIAL IV STA (23:38)
[2023-12-10] MEDS: amLODIPine BESYLATE 5 MG TAB PO ONE (23:38)
[2023-12-10 23:42] LABS: Magnesium 1.9 mg/dl (1.7-2.4); Phosphorus 3.4 mg/dl (2.5-4.9)
[2023-12-11 00:02] LABS: Troponin I High Sensitivity 29.7 pg/ml (0-14)
[2023-12-11] MEDS: hydrALAZINE 10 MG TAB PO STA (00:13)
[2023-12-11] MEDS: LORazepam 0.5 MG TAB PO STA (00:50)
[2023-12-11] MEDS ORDERED: ACETAMINOPHEN 325 MG TAB PO PRN (03:08)
[2023-12-11] MEDS ORDERED: ONDANSETRON INJ 2 MG/ML 2 ML VIAL IV PRN (03:08)
[2023-12-11] MEDS ORDERED: LORazepam 0.5 MG TAB PO PRN (03:08)
[2023-12-11] MEDS: LEVOTHYROXINE SODIUM 50 MCG TABLET PO SCH (06:47)
--- NOTE | 2023-12-11 07:04 | Hospitalist Progress Note ---
Date of Service December 11, 2023 Assessment & Plan (1) Chest pain: Plan: troponin 11->29->28 ECG with no acute changes Patient denies chest pain at this time. did have markedly elevated BP -Pending echo (2) HTN (hypertension): Plan: Elevated blood pressure in the ER now improved, 150/68 -Increase home Lisinopril/HCTZ to 20/12.5mg daily to start 12/11/23 -Initiate Amlodipine 5mg po daily -Ativan PRN Patient has had a lot of stress lately - recently in October (3) Hypothyroid: Plan: Chronic stable -Continue Synthroid Admission and Anticipated Discharge Date Admission Date: December 10, 2023 Results & Data Results & Data Vital Signs (Past 12 Hours) Vital Signs Temp Pulse Pulse Resp BP BP Pulse Ox 12/11/23 06:55 73 12/11/23 03:24 83 12/11/23 03:23 92 H 18 150/68 H 95 12/11/23 03:23 12/11/23 01:30 81 19 94 12/11/23 01:30 153/89 H 12/11/23 01:10 87 12/11/23 01:00 84 13 95 12/11/23 01:00 170/78 H 12/11/23 00:30 82 18 95 12/11/23 00:30 165/76 H 12/11/23 00:00 79 16 12/11/23 00:00 162/74 H 12/10/23 23:38 184/98 H 12/10/23 23:38 95 12/10/23 23:30 75 22 93 12/10/23 23:30 177/86 H 12/10/23 23:01 74 22 97 12/10/23 23:01 205/91 H 12/10/23 23:00 70 18 96 12/10/23 22:43 200/80 H 12/10/23 22:43 69 25 H 97 12/10/23 22:30 68 21 97 12/10/23 22:10 66 20 93 12/10/23 22:10 182/79 H 12/10/23 22:00 197/106 H 12/10/23 22:00 74 22 98 12/10/23 21:42 76 216/114 H 12/10/23 21:38 84 16 99 12/10/23 21:37 83 12/10/23 21:34 84 16 216/114 H 97 12/10/23 19:04 97.3 F L 88 17 237/99 H 97 O2 Del Method 12/11/23 06:55 12/11/23 03:24 12/11/23 03:23 Room Air 12/11/23 03:23 Room Air 12/11/23 01:30 12/11/23 01:30 12/11/23 01:10 12/11/23 01:00 12/11/23 01:00 12/11/23 00:30 12/11/23 00:30 12/11/23 00:00 12/11/23 00:00 12/10/23 23:38 12/10/23 23:38 12/10/23 23:30 12/10/23 23:30 12/10/23 23:01 12/10/23 23:01 12/10/23 23:00 12/10/23 22:43 12/10/23 22:43 12/10/23 22:30 12/10/23 22:10 12/10/23 22:10 12/10/23 22:00 12/10/23 22:00 12/10/23 21:42 12/10/23 21:38 12/10/23 21:37 12/10/23 21:34 Room Air 12/10/23 19:04 Room Air PG Care Time/CCT Total # of Minutes Spent Total Time Spent with Patient: Total time spent is greater than 50% in coordination of care (as documented) at patient's floor/unit and/or counseling patient: Coding Diagnoses Chest pain R07.9 Chest pain type: unspecified Essential hypertension I10 Hypertension type: essential hypertension Hypothyroid E03.9 (1) Chest pain Chest pain type: unspecified Qualified Code(s): R07.9 - Chest pain, unspecified (2) HTN (hypertension) Hypertension type: essential hypertension Qualified Code(s): I10 - Essential (primary) hypertension
--- NOTE | 2023-12-11 07:39 | XRay Report ---
XR chest 1V not portable HISTORY: 83 years-old Female Chest pain, nonspecific COMPARISON: 08/15/2018 TECHNIQUE: PA view of the chest FINDINGS: Cardiac silhouette is mildly enlarged. No pneumothorax, pleural effusion or airspace consolidation. M ild bibasilar atelectasis. The bones appear grossly intact. Mild upper thoracic dextroscoliosis. IMPRESSION: No acute process. ACT 112: Negative or not required by law. The above report was generated using voice recognition software. It may contain grammatical, syntax o r spelling errors. Electronically signed by: Luis Ly M.D. 12/11/2023 7:37 AM
[2023-12-11] MEDS: amLODIPine BESYLATE 5 MG TAB PO SCH (08:34)
[2023-12-11] MEDS: LISINOPRIL/HCTZ 20/12.5MG 1 TAB TAB PO SCH (08:34)
--- NOTE | 2023-12-11 10:08 | XCELERA ---
[id number] [id number]
--- NOTE | 2023-12-11 15:23 | Discharge Summary ---
Date of Service December 11, 2023 Admission HPI Per Admitting Provider 83yo female with history of HTN, HLP and Hypothyroidism presenting with chest pain that started at 0700. Pain left sided, started at her elbow then started in her left chest. Non-pleuritic and non-positional. No shortness of breath or diaphoresis. Elevated BP in the ER > 200 ER Course: Labetalol 10mg IV Amlodipine 5mg PO Hydralazine 10mg PO Ativan 0.5mg pO Principal Diagnosis hypertensive urgency elevated troponin, not acs suspect demand ischemia Discharge Exam awake and alert cardiac is regular, no murmur lungs are clear no carotid or abdominal bruits Discharge Data Allergies Allergy/AdvReac Type Severity Reaction Status Date / Time No Known Allergies Allergy Verified 12/10/23 23:34 Consultations 12/11/23 00:17 ED Decision to Admit Stat 12/11/23 15:17 Consult [facility] comb winder Routine Hospital Course (1) Chest pain: troponin 11->29->28 ECG with no acute changes Patient denies chest pain at this time. did have markedly elevated BP Echo normal without RWMA, no takusubo( pt endorses recent of has been emotionally hard for her) no inpt stress workup at this time (2) HTN (hypertension): Elevated blood pressure in the ER now improved, 150/68 -Increase home Lisinopril/HCTZ to 20/25 mg daily to start 12/11/23 new Rx given, will hae close follow up (3) Hypothyroid: Chronic stable -Continue Synthroid Total Time Total Time Spent Total Time Spent (In Minutes): It required greater than 30 minutes to prepare this patient for discharge. Discharge Plan Discharge Items Patient Disposition: Home - Self-Care Reason For Visit: HYPERTENSION, CHEST DISCOMFORT Discharge Diagnosis: hypertensive urgency Activity: Resume your previous activity Non-emergency contact: Primary Care Provider Call non-emergency contact if: your symptoms worsen Follow-up/Referrals: Porsha Sargent DO [Primary Care Provider] - Diet: Low Sodium (2gm) Addtl Attending Provider Instructions: low salt diet, double your blood pressure medicine , you may take two pills at same time. follow up with Dr Sargent Pending Studies at Discharge: No Stand-Alone Forms: My [employer], Smoking Cessation Medications and DC Order Prescriptions: Continued multivitamin tablet 1 tab PO DAILY ascorbic acid (vitamin C) 1,000 mg tablet 1 gm PO DAILY cholecalciferol (vitamin D3) [Vitamin D3] 50 mcg (2,000 unit) Capsule 50 mcg PO DAILY Probiotic 10 billion cell Capsule 10,000 mmu cells PO DAILY lorazepam 0.5 mg tablet 0.5 mg PO HS PRN (Reason: anxiety) levothyroxine 50 mcg tablet 50 mcg PO DAILYBB Rx Instructions: TAKE ONE TABLET BY MOUTH EVERY MORNING clobetasol 0.05 % solution 1 applic topical DIRECTED PRN (Reason: SCALP IRRITATION) Changed lisinopril-hydrochlorothiazide 20-25 mg tablet 1 tab PO DAILY Qty: 30 4RF Discharge Orders: Discharge Order (Routine); Ordered 12/11/23 Ordered By: Vadim Arizmendi Admission Data Admit Date/Time: 12/10/23 23:16 Attending Provider: Vadim Arizmendi Admit Provider: Christin Lund Primary Care Provider: Porsha Sargent Other Providers: Christin Lund Other Interventions: Discharge Summary Assessment (RN) Last Done: 12/11/23 11:53 Coding Level of Care Code 21146 INP/OBS DISCH >30 MIN Diagnoses Chest pain R07.9 Chest pain type: unspecified Essential hypertension I10 Hypertension type: essential hypertension Hypothyroid E03.9
--- NOTE | 2023-12-11 17:42 | Electrocardiogram Report ---
Test Reason : Blood Pressure : / mmHG Vent. Rate : 077 BPM Atrial Rate : 077 BPM P-R Int : 168 ms QRS Dur : 090 ms QT Int : 370 ms P-R-T Axes : 044 011 034 degrees QTc Int : 418 ms Sinus rhythm with Premature atrial complexes Otherwise normal ECG When compared with ECG of 21-MAY-2021 12:09, No significant change was found Confirmed by Wilberto Gonzalez ([id number]) on 12/11/2023 5:41:55 PM Referred By: REFERRED SELF Confirmed By:Wilberto Gonzalez
== END 2023-12-11 11:55 | disposition home or self-care (01) ==
LOC: ED 19:01 → EDINP 19:01 → SUATTDRO 23:16 → EDINP 12-11 03:08